=== PATIENT | male | born 1965 | race Caucasian/White ===

== ENCOUNTER → 2017-09-10 09:30 | Outpatient (CLI) | payer BC, SELFPAY | PROVIDERS: PCP Emergency Medicine; Visit Provider Emergency Medicine | DX: R00.8 Other abnormalities of heart beat (principal); I49.9 Cardiac arrhythmia, unspecified | CPT/HCPCS: 93225; 93226 ==

== ENCOUNTER → 2017-11-09 12:26 | Outpatient (POV) | payer BC, SELFPAY ==
[2017-11-09 14:47] LABS: INR 1.24 (0.9-1.1); Prothrombin Time 12.7 seconds (9.4-11.8)
[2017-11-11 08:37] LABS: Iron 75 ug/dL (38-169); UIBC 287 ug/dL (111-343)
[2017-11-11 11:19] LABS: Alpha-1-Antitrypsin 163 mg/dL (90-200); Ceruloplasmin 26.6 mg/dL (16.0-31.0); Immunoglobulin A, Qn 314 mg/dL (90-386); Immunoglobulin G, Qn 1950 mg/dL (700-1600)
[2017-11-12 06:47] LABS: AFP, Tumor Marker 479.3 ng/mL (0.0-8.3); Angiotensin Converting Enzyme 59 U/L (14-82); Immunoglobulin M, Qn 85 mg/dL (20-172); Iron Saturation 21 % (15-55)
[2017-11-12 06:48] LABS: Actin (Smooth Muscle) Antibody 70 Units (0-19); Antinuclear Antibodies, IFA Negative (.); Liver-Kidney Microsomal Ab 1.1 Units (0.0-20.0); Mitochondrial (M2) Antibody <20.0 Units (0.0-20.0)
[2017-11-13 06:16] LABS: ALT (SGPT) P5P 170 IU/L (0-55); Alpha 2-Macroglobulins, Qn 274 mg/dL (110-276); Apolipoprotein A-1 112 mg/dL (101-178); Bilirubin, Total 0.9 mg/dL (0.0-1.2); Fibrosis Score 0.89 (0.00-0.21); GGT 191 IU/L (0-65); Haptoglobin 28 mg/dL (34-200); Necroinflammat Activity Grade A3-Severe activity (.); Necroinflammat Activity Score 0.89 (0.00-0.17)
[2017-12-23 16:18] LABS: Hepatitis C Genotype Charge YES
== END ==
PROVIDERS: Visit Provider Nurse Practitioner Acute Care
DX: B18.2 Chronic viral hepatitis C (principal); R94.5 Abnormal results of liver function studies; R07.9 Chest pain, unspecified; Z86.010 Personal history of colon polyps
CPT/HCPCS: 36415; 82103; 82104; 82105; 82164; 82390; 82784; 83540; 83550; 85610; 86038; 86255; 86256; 86376; 87522; 87900

== ENCOUNTER → 2017-11-12 10:19 | Outpatient (CLI) | payer BC, SELFPAY ==
--- NOTE | 2017-11-12 10:24 | US_ITS ---
US abdomen limited History:Hepatitis C Ordering Physician:Kathleen Toribio Patient Age: 52 years Comparison:None Findings: Pancreas:The pancreas is poorly demonstrated. Liver:The liver margin is slightly irregular with slight increased echogenicity of the liver. No intrahepatic biliary dilatation. There is a 2 cm area of increased echogenicity in the left hepatic lobe possibly due to a hemangioma. This is only demonstrated on one image. CT suggested for further evaluation. There is appropriate direction of blood flow within the portal vein. The portal vein is upper normal at 13 mm. Right Kidney:No hydronephrosis. There is an 18 mm cyst along the lower pole the right kidney and a 2.5 cm cyst in the mid pole. 17 mm cyst upper pole Gallbladder:Prior cholecystectomy, no ductal dilatation Impression: 1. Somewhat irregular hyperechoic liver, possible cirrhosis. Portal vein blood flow is hepatopedal. Portal vein upper limits of normal. 2. 2 cm area of increased echogenicity in the left hepatic lobe which could be due to a hemangioma. CT or MRI may with hemangioma protocol may confirm. 3. Right renal cysts
== END ==
PROVIDERS: PCP Emergency Medicine; Visit Provider Nurse Practitioner Acute Care
DX: B19.20 Unspecified viral hepatitis C without hepatic coma (principal); K63.5 Polyp of colon; R74.8 Abnormal levels of other serum enzymes; R07.9 Chest pain, unspecified
CPT/HCPCS: 76705

== ENCOUNTER → 2017-12-01 07:46 | Outpatient (CLI) | payer BC, SELFPAY ==
[2017-12-01 08:11] LABS: Blood Urea Nitrogen 7 mg/dL (7-18); Estimated Glomerular Filt Rate 78 ml/min (>60); GFR (African American) 94 ML/MIN (>60)
--- NOTE | 2017-12-01 08:47 | CT_ITS ---
CT abdomen pelvis w con CLINICAL INDICATION: Follow-up liver mass, cirrhosis, abnormal liver ultrasound, hepatitis ITS.REASON: CIRRHOSIS, LIVER MASS, CHRONIC HEP C ORDERING PHYSICIAN: Kathleen Toribio PATIENT AGE: 52 years COMPARISON: 11/12/2017 TECHNIQUE: Axial images obtained with sagittal and coronal reformats. All CT scans at the facility use one or more dose reduction, viz: automated exposure control, ma/kV adjustment per patient size (including targeted exams where dose is matched to indication, i.e. head), or iterative reconstruction technique. 30 seconds, 60 seconds, 5 minute delay, and 10 minute delayed images are obtained following the intravenous ministration of 75 mL's of Isovue-370 PROCEDURE: Oral Contrast: None IV Contrast: 75 mL's of Isovue-370. FINDINGS: There is an 8 mm nodular opacity in the right lung base along the hemidiaphragm. The liver margin is somewhat irregular consistent with cirrhosis. There is a cyst in the inferior aspect of the right hepatic lobe at 9 mm. On the arterial phase images there is a subtle area of decreased attenuation in the lateral aspect of the left hepatic lobe at 12 mm. This is not apparent on the other images and may be due to artifact from partial volume averaging. There is an ill-defined area of enhancement in the anterior segment of the right hepatic lobe measuring 3.2 x 2 cm. This shows some decreased attenuation on the 1 minute and 5 minute and 10 minute delayed images. This is nonspecific however, hepatocellular carcinoma is a consideration. No other abnormal areas of enhancement are apparent. There has been a prior cholecystectomy. There is splenomegaly at 18 cm. Liver margin is somewhat irregular. The portal vein is prominent at 1.9 cm. There is an isodense in the right hepatic lobe inferiorly at 9 mm and may be due to small cyst The adrenal glands and pancreas have an unremarkable appearance. There are mildly prominent lymph nodes in the portal region measuring up to 2.7 x 1.5 cm. Mildly prominent lymph nodes are present at the celiac axis region. Bilateral renal cysts. No intestinal obstruction or free air. No evidence of appendicitis or diverticulitis. No pelvic mass or abnormal fluid collection or focal inflammatory change in the pelvis. No acute bony anomalies. IMPRESSION: 1. Findings suggesting cirrhosis and portal hypertension with splenomegaly 2. Ill-defined area of initial contrast enhancement with immediate washout involving the anterior segment of the right hepatic lobe, segment 8. Hepatocellular carcinoma could have this finding. Consider confirmation with MRI. 2. Adenopathy in the portal region and along the celiac axis.
[2017-12-03 06:41] LABS: HCV Genotype Charge YES
[2017-12-04 13:20] LABS: Hepatitis C Genotype 2b (.)
== END ==
PROVIDERS: PCP Emergency Medicine; Visit Provider Nurse Practitioner Acute Care
DX: K74.60 Unspecified cirrhosis of liver (principal); R16.0 Hepatomegaly, not elsewhere classified; B18.2 Chronic viral hepatitis C
CPT/HCPCS: 36415; 74177; 82565; 84520; 87522; 87902; Q9967

== ENCOUNTER → 2017-12-21 09:26 | Outpatient (POV) | payer BC, SELFPAY | PROVIDERS: PCP Emergency Medicine; Visit Provider Nurse Practitioner Acute Care | DX: Z00.00 Encounter for general adult medical examination without abnormal findings (principal) ==

== ENCOUNTER → 2018-01-21 13:16 | Outpatient (CLI) | payer BC, SELFPAY ==
--- NOTE | 2018-01-21 13:19 | CT_ITS ---
CT chest wo con HISTORY: Hepatocellular carcinoma, evaluate for metastasis ITS.REASON: HCC, ASSESS FOR METASTATIC DISEASE ORDERING PHYSICIAN: Ascencion Powell PATIENT AGE: 52 years COMPARISON: None Technique: Axial images obtained with sagittal and coronal reformats. All CT scans at the facility use one or more dose reduction, viz: automated exposure control, ma/kV adjustment per patient size (including targeted exams where dose is matched to indication, i.e. head), or iterative reconstruction technique. FINDINGS: No mediastinal or hilar mass or adenopathy is evident. Coronary artery calcifications are present. Normal heart size without evidence of cardial effusion. There is a 7 mm subpleural nodular opacity in the extreme right lung base along the right hemidiaphragm. Addition there is a 4 mm noncalcified nodule in the superior segment of the left lower lobe. No central obstructing lesions. No effusions or infiltrates. There are mild atelectatic or fibrotic changes in the lung bases. Incidental note is made of cirrhotic appearance of the liver with splenomegaly, periportal adenopathy, and ill-defined hypodense lesion of the right hepatic lobe measuring approximately 4 x 3 cm. Cannot determine if this has increased are decreased in size as there are no previous unenhanced exams available for review. This does represent the area of enhancement is noted on the recent enhanced CT scan of 12/01/2017 and may have slightly increased in size. Degenerative changes thoracic spine. No evidence of lytic or blastic lesion. IMPRESSION: 1. There are 2 pulmonary nodules one of which is pleural-based in the right lung base along the hemidiaphragm and 7 mm and one in the superior segment of left lower lobe 4 mm. These are nonspecific. Overall, the appearance is not typical for metastatic disease although that entity cannot completely be excluded. Follow-up is suggested to confirm stability of these nodules 2. Mild cardiomegaly with coronary artery calcification 3. Cirrhosis with portal hypertension, ill-defined right hepatic mass and portal adenopathy which may correspond to patient's history of hepatocellular carcinoma
== END ==
PROVIDERS: PCP Emergency Medicine; Visit Provider Transplant Surgery
DX: C22.0 Liver cell carcinoma (principal); Z12.89 Encounter for screening for malignant neoplasm of other sites
CPT/HCPCS: 71250

== ENCOUNTER 2018-05-15 14:23 | Inpatient (IN) ==
--- NOTE | 2018-05-15 14:38 | Emergency Department Note ---
ED Disposition Clinical Impression: Upper gastrointestinal bleed, Aspirin adverse reaction Disposition: Still a Patient Condition on Discharge: Fair Instructions: DI for Gastrointestinal Bleeding Referrals: Real Linda MD [Primary Care Provider] - - Critical Care Critical Care Time: No Attestation: On 05/15/18, the high probability of a clinically significant, sudden or life threatening deterioration of the following system(s) required my full and direct attention, intervention and personal management. The time I documented below is in addition to time spent performing reported procedures but includes the following listed in this critical care notation. Medical Decision Making - Medical Records Medical records reviewed: Yes: I reviewed the patient's medical records. - Thomas Inquiry Pt receiving controlled substance: No Thomas was queried for this patient: No Vital Signs: 05/15/18 14:17 05/15/18 14:47 05/15/18 15:13 Temperature 97.9 F Temperature Source Oral Pulse Rate [Right Brachial] 112 H 107 H 109 H Respiratory Rate 18 16 18 Blood Pressure [Right Arm] 161/109 H 110/59 L 113/57 L Blood Pressure Mean [Right Arm] 126 76 75 Blood Pressure Source [Right Arm] Automatic Cuff Automatic Cuff Automatic Cuff Blood Pressure Position [Right Arm] Sitting Sitting Sitting 02 Sat by Pulse Oximetry 98 98 96 Oxygen Delivery Method Room Air Room Air Room Air - Lab Data Lab Results 05/15/18 14:30: Stool Occult Blood Positive A 05/15/18 14:30: WBC 17.5 H D, RBC 3.48 L, Hgb 11.3 L, Hct 33.8 L, MCV 96.9 H, MCH 32.4 H, MCHC 33.5, RDW 15.1, Plt Count 174 D, MPV 8.7, Neut % (Auto) 84.3 H , Lymph % (Auto) 12.0, [place] % (Auto) 3.2, Eos % (Auto) 0.2, Baso % (Auto) 0.4, Neut # (Auto) 14.8 H, Lymph # (Auto) 2.1, [place] # (Auto) 0.6, Eos # (Auto) 0.0, Baso # (Auto) 0.1, Total Counted 100, Neutrophils % (Manual) 88 H, Lymphocytes % (Manual) 8 L, Monocytes % (Manual) 4, Platelet Estimate Normal, RBC Morphology Normal 05/15/18 14:30: PT 12.5 H, INR 1.22 H, APTT 21.2 L 05/15/18 14:30: Sodium 137, Potassium 4.9, Chloride 104, Carbon Dioxide 24, Anion Gap 13.9, BUN 41 H D, Creatinine 1.00, Estimated Creat Clear 100, Estimated GFR 78, Est GFR ( Amer) 94, Glucose 206 H, Calcium 9.1, Total Bilirubin 2.4 H, AST 188 H, ALT 154 H, Alkaline Phosphatase 123 H, Total Protein 7.4, Albumin 2.8 L, Globulin 4.6 H, Albumin/Globulin Ratio 0.6 L Result diagrams: 05/15/18 14:30 05/15/18 14:30 Orders (Tests/Meds): ED MEDICATIONS Generic Name Dose Route Start Last Admin Trade Name Freq PRN Reason Stop Dose Admin Pantoprazole Sodium 80 mg/ 100 mls @ 100 mls/hr 05/15/18 14:29 Sodium Chloride IV 05/15/18 15:28 ONCE ONE Discontinued Medications Generic Name Dose Route Start Last Admin Trade Name Freq PRN Reason Stop Dose Admin Famotidine 20 mg 05/15/18 14:29 Pepcid 20mg/2ml Vial IV 05/15/18 14:30 ONCE ONE Pantoprazole Sodium 80 mg/ 100 mls @ 10 mls/hr 05/15/18 14:30 05/15/18 14:51 Sodium Chloride IV 05/18/18 14:29 Not Given .Q10H CASI Pantoprazole Sodium 80 mg/ 100 mls @ 10 mls/hr 05/15/18 15:30 Sodium Chloride IV 05/18/18 15:29 .Q10H CASI ORDERS Category Date Time Status Acute abdomen XR series [XR acute abdomen series] Stat Exams 05/15/18 14:29 Taken Occult Blood,Stool Stat Lab 05/15/18 14:30 Ordered - Radiology Data #1 Image(s): Chest, Abdomen Image Reviewed: Yes I reviewed the patient's radiology image Preliminary Findings: Normal/NAD Stop changes no acute findings. Medical Decision Narrative: Patient was positive for Hemoccult his hemoglobin was above 10 hemodynamically stable I called Dr. Chairez who was apron operator for Dr. Linda agreed to admit the patient for IV fluids IV Protonix and surgical consultation. [id number] Hogan surgeon apron operator and notified him of the admission and need for inpatient consultation. GI Bleed HPI - General Chief complaint: GI Bleed Stated complaint: spitting up blood Time Seen by Provider: 05/15/18 14:25 Mode of Arrival: EMS Limitations: No Limitations Description of Symptoms (Recalled from ER Triage Doc. by RN): re-evaluation for same scenario as yesterday. spit up blood. - History of Present Illness HPI Narrative: 52 years old white male on daily aspirin he has been experiencing hematemesis for the past 2 days once a day. Also he developed black tarry stool for the past 2 days. Patient denies being weak dizzy or lightheaded. Patient denies having chest pain or abdominal pain. Patient denies having dysuria hematuria or frequency hemoptysis shortness of air or weakness. MD complaint: blood streaked emesis, melena Onset (ago): day(s) (Once a day for 2 days..) Consistency: intermittent Severity: mild Relieving factors: none Exacerbating factors: none Associated symptoms: denies other symptoms Treatments Prior to Arrival: none - Related Data Home Medications Medication Instructions Recorded Confirmed doxepin 150 mg capsule 150 mg PO QHS 11/24/17 05/14/18 hydroxyzine HCl 50 mg tablet 50 mg PO QHS tab 11/24/17 05/14/18 ibuprofen 400 mg tablet 400 mg PO QID PRN 11/24/17 05/14/18 trazodone 50 mg tablet 50 mg PO DAILY 11/24/17 05/14/18 Amlodipine Besylate 2.5 mg PO DAILY 05/14/18 05/14/18 Aspirin [Aspirin 81mg chewable 81 mg PO DAILY 05/14/18 05/14/18 tab] Bisoprolol Fumarate [Bisoprolol 5 mg PO DAILY 05/14/18 05/14/18 5mg Tablet] Allergies Allergy/AdvReac Type Severity Reaction Status Date / Time acetaminophen [From Percocet] Allergy Mild Verified 11/24/17 14:10 haloperidol [From Haldol] Allergy Mild Verified 11/24/17 14:10 oxycodone [From Percocet] Allergy Mild Verified 11/24/17 14:10 risperidone [From Risperdal] Allergy Mild Verified 11/24/17 14:11 [facility] [place] History - Hepatitis A Screen Drug use history?: No High risk sexual behaviors?: No History of sexually transmitted infection?: No Currently employed?: No Childcare worker?: Yes Do you have indoor plumbing?: Yes Do you have electricity?: Yes Attestation statement:: This patient has been screened for Hepatitis A risk factors. I have reviewed the patient's past medical history: Yes Medical History: Reports:: Chronic Obstructive Pulmonary Disease (COPD), Dep ression Denies:: Diabetes Mellitus Type 1, Diabetes Mellitus Type 2 Other Medical History: Reports: Liver Disease Other Surgeries: Yes: Cholecystectomy - Social History Smoking Status: Former smoker Alcohol Intake: never Substance Use Type: denies use Occupational Status: disabled - Psychiatric History Pschychiatric History:: Reports:: Depression Family Hx:: No significant family history ROS Obtained: Yes All systems reviewed & no additional complaints Physical Exam - General General appearance: alert, in no apparent distress - Head Head exam: atraumatic, normocephalic, normal inspection - Eye Eye exam: Present: normal appearance, PERRL, EOMI. Absent: scleral icterus, nystagmus - ENT ENT exam: Present: normal exam, normal oropharynx, mucous membranes moist, TM's normal bilaterally, normal external ear exam - Neck Neck exam: Present: normal inspection, full ROM, trachea midline. Absent: tenderness, meningismus, lymphadenopathy - Chest Chest inspection: Present: normal inspection, symmetric chest wall rise. Absent: tenderness - Respiratory Respiratory exam: Present: normal lung sounds bilaterally. Absent: respiratory distress, wheezes - Cardiovascular Cardiovascular exam: Present: regular rate, normal rhythm, normal heart sounds. Absent: JVD - Abdominal Exam Abdominal exam: Present: soft, normal bowel sounds. Absent: distention, tenderness, guarding, rebound, rigidity - Rectal Exam Rectal exam: Present: normal rectal tone, black stool, normal prostate. Absent: tenderness - exam: Present: normal inspection, normal testicular lie. Absent: testicular tenderness, urethral discharge, scrotal swelling - Extremities Exam Extremities exam: Present: normal inspection, full ROM, normal capillary refill. Absent: calf tenderness - Back Exam Back exam: Present: normal inspection. Absent: tenderness, CVA tenderness (R), CVA tenderness (L), vertebral tenderness - Neurological Exam Neurological exam: Present: alert, oriented X3, CN II-XII intact, motor sensory deficit - Psychiatric Psychiatric exam: Present: normal affect, normal mood - Skin Skin exam: Present: warm, dry, intact, normal color - Lymphatic Lymphatic Findings: no adenopathy
[2018-05-15 14:51] LABS: Basophils # 0.1 K/mm3 (0-0.2); Basophils % 0.4 % (0.1-2.0); Eosinophils % 0.2 % (0.1-12.0); Hematocrit 33.8 % (42.0-52.0); Hemoglobin 11.3 g/dL (14.1-18.0); Lymphocytes # 2.1 K/mm3 (0.7-4.5); Mean Corpuscular HGB Conc 33.5 g/dL (31.8-35.4); Mean Corpuscular Hemoglobin 32.4 pg (27.0-31.2); Mean Corpuscular Volume 96.9 fl (80-94); Mean Platelet Volume 8.7 fl (7.4-10.4); Monocytes # 0.6 K/mm3 (0.1-1.0); Monocytes % 3.2 % (1.7-9.3); Neutrophils # 14.8 K/mm3 (1.8-7.8); Neutrophils % 84.3 % (37.0-80.0); Platelet Count 174 K/mm3 (142-424); Red Blood Count 3.48 M/mm3 (4.60-6.20); Red Cell Distribution Width 15.1 % (11.5-17.5); White Blood Count 17.5 K/mm3 (4.8-10.8)
[2018-05-15 14:59] LABS: Activated Partial Thrombo Time 21.2 seconds (23.6-34.0); INR 1.22 (0.9-1.1); Prothrombin Time 12.5 seconds (9.4-11.8)
[2018-05-15 15:02] LABS: Albumin Level 2.8 gm/dL (3.4-5.0); Albumin/Globulin Ratio 0.6 (1.1-1.8); Anion Gap 13.9 mEq/L (5-15); Bilirubin,Total 2.4 mg/dL (0.2-1.0); Calcium 9.1 mg/dL (8.5-10.1); Globulin 4.6 gm/dl (1.3-3.2); Potassium 4.9 mmoL/L (3.5-5.1); Total Protein,Serum 7.4 gm/dL (6.4-8.2)
[2018-05-15 15:13] LABS: Lymphocytes % 8 % (10-50); Monocytes % 4 % (2-9); Neutrophils % 88 % (42-76); RBC Morphology Normal; Total Cells Counted 100
[2018-05-15 16:40] LABS: Hemoglobin 10.8 g/dL (14.1-18.0)
[2018-05-15 23:55] LABS: Hematocrit 25.7 % (42.0-52.0)
[2018-05-16 06:30] LABS: Basophils # 0.1 K/mm3 (0-0.2); Basophils % 0.7 % (0.1-2.0); Eosinophils # 0.1 K/mm3 (0.0-0.4); Eosinophils % 1.1 % (0.1-12.0); Hemoglobin 8.4 g/dL (14.1-18.0); Lymphocytes # 2.4 K/mm3 (0.7-4.5); Lymphocytes % 20.7 % (10-50); Mean Corpuscular HGB Conc 35.5 g/dL (31.8-35.4); Mean Corpuscular Hemoglobin 33.5 pg (27.0-31.2); Mean Corpuscular Volume 94.3 fl (80-94); Mean Platelet Volume 8.6 fl (7.4-10.4); Monocytes # 0.5 K/mm3 (0.1-1.0); Monocytes % 4.8 % (1.7-9.3); Neutrophils # 8.3 K/mm3 (1.8-7.8); Neutrophils % 72.7 % (37.0-80.0); Platelet Count 116 K/mm3 (142-424); Red Blood Count 2.51 M/mm3 (4.60-6.20); Red Cell Distribution Width 15.4 % (11.5-17.5); White Blood Count 11.3 K/mm3 (4.8-10.8)
[2018-05-16 06:32] LABS: Hematocrit 23.7 % (42.0-52.0)
[2018-05-16 06:39] LABS: Anion Gap 11.7 mEq/L (5-15); Calcium 8.2 mg/dL (8.5-10.1); Potassium 3.7 mmoL/L (3.5-5.1)
--- NOTE | 2018-05-16 10:43 | Pharmacy Consult Notes ---
[facility] Pharmacy VTE Monitoring - Patient Demographics Admission date: 05/15/18 Report Date: 05/16/18 Time: 10:43 Allergies/Adverse Reactions: Patient Allergies acetaminophen [From Percocet] Allergy (Mild, Verified 05/15/18 17:06) haloperidol [From Haldol] Allergy (Mild, Verified 05/15/18 17:06) oxycodone [From Percocet] Allergy (Mild, Verified 05/15/18 17:06) risperidone [From Risperdal] Allergy (Mild, Verified 05/15/18 17:06) Height: 1.85 m Weight: 108.862 kg Patient Problems: Current Active Problems Upper gastrointestinal bleed (Acute) Aspirin adverse reaction (Acute) - VTE Risk Labs: VTE Related Lab Results Hgb 8.4 g/dL (14.1-18.0) L 05/16/18 06:20 Hct 23.7 % (42.0-52.0) L* 05/16/18 06:20 Plt Count 116 K/mm3 (142-424) L D 05/16/18 06:20 PT 12.5 seconds (9.4-11.8) H 05/15/18 14:30 INR 1.22 (0.9-1.1) H 05/15/18 14:30 APTT 21.2 seconds (23.6-34.0) L 05/15/18 14:30 BUN 34 mg/dL (7-18) H 05/16/18 06:20 Creatinine 0.92 mg/dL (0.70-1.30) 05/16/18 06:20 Estimated Creat Clear 141 mL/min (50-200) 05/16/18 06:20 - Prophylaxis VTE Prophylaxis Ordered?: Yes Types of VTE Prophylaxis: TEDS Knee High Location of Applied Device: Bilateral Lower Extremeties
--- NOTE | 2018-05-16 13:07 | Consult Report ---
*Admission Date: 05/15/18 *Chief complaint: Upper GI Bleed *History of present illness: Mr. Galdamez is a 52-year-old male with a prominently fever history of self- reported melena and low volume hematemesis. Additional complaints of fatigue and malaise. No abdominal pain. No unintentional weight loss. No fever or chills. Patient currently resides at a long-term care facility. Known history of hepatitis C. Patient reports that he has been told he has cirrhosis secondary to hepatitis C. no other significant complaints. Admitted from [facility] ED for further management observation. Patient reports colonoscopy greater than 10 years ago. Patient reports no prior EGD. Review of Systems - Review of Systems Review of systems:: pertinent systems reviewed and negative unless documented below - Constitutional Reports fatigue, Reports lack of energy, Reports malaise, Reports weakness - *Respiratory Reports shortness of breath with activity - *Gastrointestinal Reports coffee ground vomit, Reports loose stools, Reports black, tarry stools, Reports nausea [facility] History Medical History: Reports:: Chronic Obstructive Pulmonary Disease (COPD), Depression, Hypertension Denies:: Diabetes Mellitus Type 1, Diabetes Mellitus Type 2 Have you ever received a pneumonia vaccine?: No Have you received a flu vaccine this season?: No Other Medical History: Reports: Liver Disease Other Surgeries: Yes: Cholecystectomy - *Social History Smoking Status: Former smoker Alcohol Intake: never Substance Use Type: denies use Occupational Status: disabled Travel in the last 8 weeks: None - Psychiatric History Expresses thoughts of harming self/others: None Suicide Plan Description: No Plan Pschychiatric History:: Reports:: Depression Family Hx:: No significant family history Meds Home Medications Medication Instructions Recorded Confirmed Type doxepin 150 mg capsule 150 mg PO HS 11/24/17 05/16/18 History Amlodipine Besylate 2.5 mg PO DAILY 05/14/18 05/15/18 History Aspirin [Aspirin 81mg chewable 81 mg PO DAILY 05/14/18 05/15/18 History tab] Bisoprolol Fumarate [Bisoprolol 5 mg PO DAILY 05/14/18 05/15/18 History 5mg Tablet] Ibuprofen [Ibuprofen 400mg 400 mg PO TIDP PRN 05/16/18 05/16/18 History Tablet] Trazodone HCl 50 mg PO HS 05/16/18 05/16/18 History hydrOXYzine HCl [Hydroxyzine HCl] 50 mg PO HS 05/16/18 05/16/18 History Allergies Allergy/AdvReac Type Severity Reaction Status Date / Time acetaminophen [From Percocet] Allergy Mild Verified 05/15/18 17:06 haloperidol [From Haldol] Allergy Mild Verified 05/15/18 17:06 oxycodone [From Percocet] Allergy Mild Verified 05/15/18 17:06 risperidone [From Risperdal] Allergy Mild Verified 05/15/18 17:06 Exam Vital signs and Labs for Last 24 Hours: Temp Pulse Resp BP Pulse Ox 98.8 F 107 H 15 103/64 L 96 05/16/18 08:00 05/16/18 08:00 05/16/18 08:00 05/16/18 08:00 05/16/18 08:00 Laboratory Results - last 24 hr 05/15/18 14:30: Stool Occult Blood Positive A 05/15/18 14:30: WBC 17.5 H D, RBC 3.48 L, Hgb 11.3 L, Hct 33.8 L, MCV 96.9 H, MCH 32.4 H, MCHC 33.5, RDW 15.1, Plt Count 174 D, MPV 8.7, Neut % (Auto) 84.3 H , Lymph % (Auto) 12.0, [place] % (Auto) 3.2, Eos % (Auto) 0.2, Baso % (Auto) 0.4, Neut # (Auto) 14.8 H, Lymph # (Auto) 2.1, [place] # (Auto) 0.6, Eos # (Auto) 0.0, B aso # (Auto) 0.1, Total Counted 100, Neutrophils % (Manual) 88 H, Lymphocytes % (Manual) 8 L, Monocytes % (Manual) 4, Platelet Estimate Normal, RBC Morphology Normal 05/15/18 14:30: PT 12.5 H, INR 1.22 H, APTT 21.2 L 05/15/18 14:30: Sodium 137, Potassium 4.9, Chloride 104, Carbon Dioxide 24, Anion Gap 13.9, BUN 41 H D, Creatinine 1.00, Estimated Creat Clear 100, Estimated GFR 78, Est GFR ( Amer) 94, Glucose 206 H, Calcium 9.1, Total Bilirubin 2.4 H, AST 188 H, ALT 154 H, Alkaline Phosphatase 123 H, Total Protein 7.4, Albumin 2.8 L, Globulin 4.6 H, Albumin/Globulin Ratio 0.6 L 05/15/18 16:00: Blood Type A Positive, Antibody Screen Negative, Crossmatch (AHG) See Detail 05/15/18 16:00: Hgb 10.8 L, Hct 32.0 L 05/15/18 23:40: Hgb 9.0 L D, Hct 25.7 L 05/16/18 06:20: WBC 11.3 H D, RBC 2.51 L D, Hgb 8.4 L, Hct 23.7 L*, MCV 94.3 H, MCH 33.5 H, MCHC 35.5 H, RDW 15.4, Plt Count 116 L D, MPV 8.6, Neut % (Auto) 72.7, Lymph % (Auto) 20.7, [place] % (Auto) 4.8, Eos % (Auto) 1.1, Baso % (Auto) 0.7, Neut # (Auto) 8.3 H, Lymph # (Auto) 2.4, [place] # (Auto) 0.5, Eos # (Auto) 0.1, Baso # (Auto) 0.1 05/16/18 06:20: Sodium 139, Potassium 3.7 D, Chloride 107, Carbon Dioxide 24, Anion Gap 11.7, BUN 34 H, Creatinine 0.92, Estimated Creat Clear 141, Estimated GFR 86, Est GFR ( Amer) 104, Glucose 159 H D, Calcium 8.2 L 05/16/18 07:13: Blood Type Confirm A Positive I & O for Last 24 hours: Intake & Output 05/14/18 05/15/18 05/16/18 05/17/18 11:59 11:59 11:59 11:59 Intake Total 360 / 360 Balance 360 / 360 Weight 108.862 kg - Constitutional no acute distress - *Routine HEENT Exam Eye: Present: scleral injection Comments: Scleral icterus. - *Routine Respiratory Exam Present: CTA bilaterally - *Routine Cardiovascular Exam Present: RRR - *Routine Abdominal Exam Present: soft Comments: Nontender. Nondistended. No evidence of abdominal wall varices. No umbilical hernia. Results - Labs 05/16/18 06:20 05/16/18 06:20 Laboratory Results - last 24 hr 05/15/18 14:30: Stool Occult Blood Positive A 05/15/18 14:30: WBC 17.5 H D, RBC 3.48 L, Hgb 11.3 L, Hct 33.8 L, MCV 96.9 H, MCH 32.4 H, MCHC 33.5, RDW 15.1, Plt Count 174 D, MPV 8.7, Neut % (Auto) 84.3 H , Lymph % (Auto) 12.0, [place] % (Auto) 3.2, Eos % (Auto) 0.2, Baso % (Auto) 0.4, Neut # (Auto) 14.8 H, Lymph # (Auto) 2.1, [place] # (Auto) 0.6, Eos # (Auto) 0.0, Baso # (Auto) 0.1, Total Counted 100, Neutrophils % (Manual) 88 H, Lymphocytes % (Manual) 8 L, Monocytes % (Manual) 4, Platelet Estimate Normal, RBC Morphology Normal 05/15/18 14:30: PT 12.5 H, INR 1.22 H, APTT 21.2 L 05/15/18 14:30: Sodium 137, Potassium 4.9, Chloride 104, Carbon Dioxide 24, Anion Gap 13.9, BUN 41 H D, Creatinine 1.00, Estimated Creat Clear 100, Estimated GFR 78, Est GFR ( Amer) 94, Glucose 206 H, Calcium 9.1, Total Bilirubin 2.4 H, AST 188 H, ALT 154 H, Alkaline Phosphatase 123 H, Total Protein 7.4, Albumin 2.8 L, Globulin 4.6 H, Albumin/Globulin Ratio 0.6 L 05/15/18 16:00: Blood Type A Positive, Antibody Screen Negative, Crossmatch (AHG) See Detail 05/15/18 16:00: Hgb 10.8 L, Hct 32.0 L 05/15/18 23:40: Hgb 9.0 L D, Hct 25.7 L 05/16/18 06:20: WBC 11.3 H D, RBC 2.51 L D, Hgb 8.4 L, Hct 23.7 L*, MCV 94.3 H, MCH 33.5 H, MCHC 35.5 H, RDW 15.4, Plt Count 116 L D, MPV 8.6, Neut % (Auto) 72.7, Lymph % (Auto) 20.7, [place] % (Auto) 4.8, Eos % (Auto) 1.1, Baso % (Auto) 0.7, Neut # (Auto) 8.3 H, Lymph # (Auto) 2.4, [place] # (Auto) 0.5, Eos # (Auto) 0.1, Baso # (Auto) 0.1 05/16/18 06:20: Sodium 139, Potassium 3.7 D, Chloride 107, Carbon Dioxide 24, Anion Gap 11.7, BUN 34 H, Creatinine 0.92, Estimated Creat Clear 141, Estimated GFR 86, Est GFR ( Amer) 104, Glucose 159 H D, Calcium 8.2 L 05/16/18 07:13: Blood Type Confirm A Positive - Imaging Chest x-ray: report reviewed Assessment and Plan (1) Upper gastrointestinal bleed Current visit: Yes Status: Acute Category: Medical Code(s): K92.2 - Gastrointestinal hemorrhage, unspecified (2) Hematemesis Current visit: No Status: Acute Qualifiers: Nausea presence: with nausea Qualified Code(s): K92.0 - Hematemesis Category: Medical Code(s): K92.0 - Hematemesis Presents with suspected upper GI bleed. Hematemesis and melena reported. Most likely secondary to underlying hepatitis C and cirrhosis. Hemodynamically stable. Hemoglobin and hematocrit noted. No prior EGD per patient report. Allow clear liquids today. Continue IV fluids. Recheck H&H. NPO after midnight. Anticipate EGD during inpatient admission.
--- NOTE | 2018-05-16 13:17 | History & Physical Report ---
*Admission Date: 05/15/18 *Chief complaint: vomiting blood *History of present illness: this wm from [facility] has known liver disease and was seen in the ed a few days ago and then continued with [facility] History Medical History: Reports:: Chronic Obstructive Pulmonary Disease (COPD), Depression, Hypertension Denies:: Diabetes Mellitus Type 1, Diabetes Mellitus Type 2 Have you ever received a pneumonia vaccine?: No Have you received a flu vaccine this season?: No Other Medical History: Reports: Liver Disease Other Surgeries: Yes: Cholecystectomy - *Social History Smoking Status: Former smoker Alcohol Intake: never Substance Use Type: denies use Occupational Status: disabled Travel in the last 8 weeks: None - Psychiatric History Expresses thoughts of harming self/others: None Suicide Plan Description: No Plan Pschychiatric History:: Reports:: Depression Family Hx:: No significant family history Review of Systems - *Neurologic Reports weakness Meds Home Medications Medication Instructions Recorded Confirmed Type doxepin 150 mg capsule 150 mg PO HS 11/24/17 05/16/18 History Amlodipine Besylate 2.5 mg PO DAILY 05/14/18 05/15/18 History Aspirin [Aspirin 81mg chewable 81 mg PO DAILY 05/14/18 05/15/18 History tab] Bisoprolol Fumarate [Bisoprolol 5 mg PO DAILY 05/14/18 05/15/18 History 5mg Tablet] Ibuprofen [Ibuprofen 400mg 400 mg PO TIDP PRN 05/16/18 05/16/18 History Tablet] Trazodone HCl 50 mg PO HS 05/16/18 05/16/18 History hydrOXYzine HCl [Hydroxyzine HCl] 50 mg PO HS 05/16/18 05/16/18 History Allergies Allergy/AdvReac Type Severity Reaction Status Date / Time acetaminophen [From Percocet] Allergy Mild Verified 05/15/18 17:06 haloperidol [From Haldol] Allergy Mild Verified 05/15/18 17:06 oxycodone [From Percocet] Allergy Mild Verified 05/15/18 17:06 risperidone [From Risperdal] Allergy Mild Verified 05/15/18 17:06 Exam Vital signs and Labs for Last 24 Hours: Temp Pulse Resp BP Pulse Ox 98.8 F 107 H 15 103/64 L 96 05/16/18 08:00 05/16/18 08:00 05/16/18 08:00 05/16/18 08:00 05/16/18 08:00 Laboratory Results - last 24 hr 05/15/18 14:30: Stool Occult Blood Positive A 05/15/18 14:30: WBC 17.5 H D, RBC 3.48 L, Hgb 11.3 L, Hct 33.8 L, MCV 96.9 H, MCH 32.4 H, MCHC 33.5, RDW 15.1, Plt Count 174 D, MPV 8.7, Neut % (Auto) 84.3 H , Lymph % (Auto) 12.0, [place] % (Auto) 3.2, Eos % (Auto) 0.2, Baso % (Auto) 0.4, Neut # (Auto) 14.8 H, Lymph # (Auto) 2.1, [place] # (Auto) 0.6, Eos # (Auto) 0.0, Baso # (Auto) 0.1, Total Counted 100, Neutrophils % (Manual) 88 H, Lymphocytes % (Manual) 8 L, Monocytes % (Manual) 4, Platelet Estimate Normal, RBC Morphology Normal 05/15/18 14:30: PT 12.5 H, INR 1.22 H, APTT 21.2 L 05/15/18 14:30: Sodium 137, Potassium 4.9, Chloride 104, Carbon Dioxide 24, An ion Gap 13.9, BUN 41 H D, Creatinine 1.00, Estimated Creat Clear 100, Estimated GFR 78, Est GFR ( Amer) 94, Glucose 206 H, Calcium 9.1, Total Bilirubin 2.4 H, AST 188 H, ALT 154 H, Alkaline Phosphatase 123 H, Total Protein 7.4, Al bumin 2.8 L, Globulin 4.6 H, Albumin/Globulin Ratio 0.6 L 05/15/18 16:00: Blood Type A Positive, Antibody Screen Negative, Crossmatch (AHG ) See Detail 05/15/18 16:00: Hgb 10.8 L, Hct 32.0 L 05/15/18 23:40: Hgb 9.0 L D, Hct 25.7 L 05/16/18 06:20: WBC 11.3 H D, RBC 2.51 L D, Hgb 8.4 L, Hct 23.7 L*, MCV 94.3 H, MCH 33.5 H, MCHC 35.5 H, RDW 15.4, Plt Count 116 L D, MPV 8.6, Neut % (Auto) 72.7, Lymph % (Auto) 20.7, [place] % (Auto) 4.8, Eos % (Auto) 1.1, Baso % (Auto) 0.7, Neut # (Auto) 8.3 H, Lymph # (Auto) 2.4, [place] # (Auto) 0.5, Eos # (Auto) 0.1, Baso # (Auto) 0.1 05/16/18 06:20: Sodium 139, Potassium 3.7 D, Chloride 107, Carbon Dioxide 24, Anion Gap 11.7, BUN 34 H, Creatinine 0.92, Estimated Creat Clear 141, Estimated GFR 86, Est GFR ( Amer) 104, Glucose 159 H D, Calcium 8.2 L 05/16/18 07:13: Blood Type Confirm A Positive I & O for Last 24 hours: Intake & Output 05/14/18 05/15/18 05/16/18 05/17/18 11:59 11:59 11:59 11:59 Intake Total 360 / 360 Balance 360 / 360 Weight 240 lb Assessment and Plan (1) Upper gastrointestinal bleed Current visit: Yes Status: Acute Category: Medical Code(s): K92.2 - Gastrointestinal hemorrhage, unspecified (2) Hematemesis Current visit: No Status: Acute Qualifiers: Nausea presence: with nausea Qualified Code(s): K92.0 - Hematemesis Category: Medical Code(s): K92.0 - Hematemesis
[2018-05-16 18:13] LABS: Basophils # 0.1 K/mm3 (0-0.2); Basophils % 0.6 % (0.1-2.0); Eosinophils # 0.1 K/mm3 (0.0-0.4); Eosinophils % 1.1 % (0.1-12.0); Lymphocytes # 1.7 K/mm3 (0.7-4.5); Lymphocytes % 19.7 % (10-50); Mean Corpuscular HGB Conc 34.6 g/dL (31.8-35.4); Mean Corpuscular Hemoglobin 33.3 pg (27.0-31.2); Mean Corpuscular Volume 96.3 fl (80-94); Mean Platelet Volume 8.8 fl (7.4-10.4); Monocytes # 0.5 K/mm3 (0.1-1.0); Monocytes % 6.1 % (1.7-9.3); Neutrophils # 6.2 K/mm3 (1.8-7.8); Neutrophils % 72.4 % (37.0-80.0); Platelet Count 98 K/mm3 (142-424); Red Blood Count 2.35 M/mm3 (4.60-6.20); Red Cell Distribution Width 15.8 % (11.5-17.5); White Blood Count 8.6 K/mm3 (4.8-10.8)
[2018-05-16 18:19] LABS: Hematocrit 22.6 % (42.0-52.0); Hemoglobin 7.8 g/dL (14.1-18.0)
[2018-05-17 10:02] LABS: Basophils % 0.5 % (0.1-2.0); Eosinophils # 0.1 K/mm3 (0.0-0.4); Eosinophils % 1.5 % (0.1-12.0); Mean Corpuscular HGB Conc 34.6 g/dL (31.8-35.4); Mean Corpuscular Volume 95.6 fl (80-94); Mean Platelet Volume 9.5 fl (7.4-10.4); Monocytes # 0.3 K/mm3 (0.1-1.0); Monocytes % 6.7 % (1.7-9.3); Neutrophils # 3.2 K/mm3 (1.8-7.8); Neutrophils % 70.3 % (37.0-80.0); Platelet Count 62 K/mm3 (142-424); Red Blood Count 2.11 M/mm3 (4.60-6.20); White Blood Count 4.6 K/mm3 (4.8-10.8)
[2018-05-17 10:13] LABS: Hematocrit 20.2 % (42.0-52.0)
[2018-05-17 10:14] LABS: Anion Gap 12.4 mEq/L (5-15); Calcium 7.9 mg/dL (8.5-10.1); Potassium 3.4 mmoL/L (3.5-5.1)
--- NOTE | 2018-05-17 10:44 | Procedure Note ---
- Procedure: Date: 05/17/18 Procedure Performed:: Esophagogastroduodenoscopy with biopsy Indications:: Upper gastrointestinal hemorrhage Performing Provider:: Rancho Ruiz MD Referring Provider:: Dr. Linda Sedation:: Monitored anesthesia care Procedure:: After informed consent was obtained the patient was taken to the endoscopy suite. Sedation ensued after the patient was transferred to the left lateral decubitus position. Pulse, blood pressure, and oxygen saturation were monitored throughout the procedure. The endoscope was advanced beyond the duodenal bulb. Retroflexion within the gastric lumen was accomplished. The gastroscope was carefully removed and the patient was transferred to recovery in stable condition. Please see "findings" and "specimens" below for detail. Findings:: Distal esophageal varices with no sign of active or recent hemorrhage Gastroduodenitis with no sign of active hemorrhage No definitive ulcerations noted (some areas difficult to visualize secondary to spasticity) Gastroesophageal junction at 42 cm Specimens:: Antral biopsy Gastric body biopsy Recommendations:: Continue PPI Possible gastroenterology evaluation secondary to hepatic insufficiency/varices Transfuse as per primary service Ongoing evaluation with regard to possible gastrointestinal blood loss (likely to be completed by gastroenterology) Complications:: No immediate Estimated blood obtained (mL): 1
[2018-05-18 02:04] LABS: Hematocrit 22.5 % (42.0-52.0); Hemoglobin 7.9 g/dL (14.1-18.0)
--- NOTE | 2018-05-18 07:14 | Progress Note ---
Subjective Patient reports: no new complaints (feels "a little lightheaded".) Exam Vital signs and Labs for Last 24 Hours: Temp Pulse Resp BP Pulse Ox 98.6 F 94 H 22 95/62 L 94 L 05/18/18 04:00 05/18/18 04:00 05/18/18 04:00 05/18/18 04:00 05/18/18 04:00 Laboratory Results - last 24 hr 05/15/18 16:00: Blood Type A Positive, Antibody Screen Negative, Crossmatch (AHG) See Detail 05/17/18 09:53: WBC 4.6 L D, RBC 2.11 L, Hgb 7.0 L*, Hct 20.2 L*, MCV 95.6 H, MCH 33.0 H, MCHC 34.6, RDW 16.0, Plt Count 62 L D, MPV 9.5, Neut % (Auto) 70.3, Lymph % (Auto) 21.0, [place] % (Auto) 6.7, Eos % (Auto) 1.5, Baso % (Auto) 0.5, Neut # (Auto) 3.2, Lymph # (Auto) 1.0, [place] # (Auto) 0.3, Eos # (Auto) 0.1, Baso # (Auto) 0.0 05/17/18 09:53: Sodium 138, Potassium 3.4 L, Chloride 106, Carbon Dioxide 23, Anion Gap 12.4, BUN 18 D, Creatinine 0.91, Estimated Creat Clear 143, Estimated GFR 87, Est GFR ( Amer) 105, Glucose 143 H, Calcium 7.9 L 05/18/18 01:50: Hgb 7.9 L*, Hct 22.5 L* I & O for Last 24 hours: Intake & Output 05/15/18 05/16/18 05/17/18 05/18/18 11:59 11:59 11:59 11:59 Intake Total 360 / 360 2160 / 2160 1580 / 1580 Balance 360 / 360 2160 / 2160 1580 / 1580 Weight 240 lb 240 lb - Constitutional no acute distress - *Routine Respiratory Exam Absent: respiratory distress - *Routine Cardiovascular Exam Present: RRR - *Routine Abdominal Exam Present: soft Progress Note: A&P (1) Upper gastrointestinal bleed Status: Acute Assessment and plan: Source is not definitive as he could have bled from varices, gastroduodenitis, or small ulceration (not visualized secondary to spasticity). Although he does not have signs of ongoing hemorrhage, he did not have an excellent response to a 2 unit blood transfusion. Repeat CBC pending. F/U pending CBC. May need IV fluids decreased as secondary dilutional effect are a possibility. Continue current medical therapy. Pending gastroenterology consultation (likely as outpatient). Current Visit: Yes (2) Hematemesis Status: Acute Current Visit: No
[2018-05-18 07:28] LABS: Basophils % 0.5 % (0.1-2.0); Eosinophils # 0.1 K/mm3 (0.0-0.4); Eosinophils % 1.6 % (0.1-12.0); Lymphocytes # 0.9 K/mm3 (0.7-4.5); Lymphocytes % 21.1 % (10-50); Mean Corpuscular HGB Conc 34.9 g/dL (31.8-35.4); Mean Corpuscular Hemoglobin 31.9 pg (27.0-31.2); Mean Corpuscular Volume 91.3 fl (80-94); Monocytes # 0.3 K/mm3 (0.1-1.0); Neutrophils # 2.9 K/mm3 (1.8-7.8); Neutrophils % 70.8 % (37.0-80.0); Platelet Count 60 K/mm3 (142-424); Red Cell Distribution Width 17.9 % (11.5-17.5); White Blood Count 4.1 K/mm3 (4.8-10.8)
[2018-05-18 07:42] LABS: Hematocrit 22.8 % (42.0-52.0)
--- NOTE | 2018-05-18 09:20 | Progress Note ---
Internal Medicine - PN: Subj *Date: 05/17/18 *Time: 08:00 Interval history: doing better - had egd Exam Vital signs and Labs for Last 24 Hours: Temp Pulse Resp BP Pulse Ox 98.9 F 97 H 17 122/72 96 05/18/18 08:00 05/18/18 08:55 05/18/18 08:00 05/18/18 08:55 05/18/18 08:00 Laboratory Results - last 24 hr 05/15/18 16:00: Blood Type A Positive, Antibody Screen Negative, Crossmatch (AHG) See Detail 05/17/18 09:53: WBC 4.6 L D, RBC 2.11 L, Hgb 7.0 L*, Hct 20.2 L*, MCV 95.6 H, MCH 33.0 H, MCHC 34.6, RDW 16.0, Plt Count 62 L D, MPV 9.5, Neut % (Auto) 70.3, Lymph % (Auto) 21.0, [place] % (Auto) 6.7, Eos % (Auto) 1.5, Baso % (Auto) 0.5, Neut # (Auto) 3.2, Lymph # (Auto) 1.0, [place] # (Auto) 0.3, Eos # (Auto) 0.1, Baso # (Auto) 0.0 05/17/18 09:53: Sodium 138, Potassium 3.4 L, Chloride 106, Carbon Dioxide 23, Anion Gap 12.4, BUN 18 D, Creatinine 0.91, Estimated Creat Clear 143, Estimated GFR 87, Est GFR ( Amer) 105, Glucose 143 H, Calcium 7.9 L 05/18/18 01:50: Hgb 7.9 L*, Hct 22.5 L* 05/18/18 07:05: WBC 4.1 L, RBC 2.50 L, Hgb 8.0 L, Hct 22.8 L*, MCV 91.3, MCH 31.9 H, MCHC 34.9, RDW 17.9 H, Plt Count 60 L, MPV 9.0, Neut % (Auto) 70.8, Lymph % (Auto) 21.1, [place] % (Auto) 6.0, Eos % (Auto) 1.6, Baso % (Auto) 0.5, Neut # (Auto) 2.9, Lymph # (Auto) 0.9, [place] # (Auto) 0.3, Eos # (Auto) 0.1, Baso # (Auto) 0.0 I & O for Last 24 hours: Intake & Output 05/15/18 05/16/18 05/17/18 05/18/18 11:59 11:59 11:59 11:59 Intake Total 360 / 360 2160 / 2160 1939 Balance 360 / 360 2160 / 2160 1939 Weight 240 lb 240 lb - Constitutional no acute distress - *Routine HEENT Exam Head: Present: normocephalic Eye: Present: EOMI, conjunctivae pink ENT: Present: mucous membranes dry - *Routine Neck Exam Present: supple - *Routine Respiratory Exam Present: CTA bilaterally - *Routine Abdominal Exam Present: soft - *Routine Extremities Exam Present: full ROM - *Routine Skin Exam Present: intact - *Routine Neurological Exam Present: alert, CN II-XII intact - Routine Psychiatric Exam Present: normal affect Assessment and Plan (1) Upper gastrointestinal bleed Current visit: Yes Status: Acute Category: Medical Code(s): K92.2 - Gastrointestinal hemorrhage, unspecified (2) Hematemesis Current visit: No Status: Acute Qualifiers: Nausea presence: with nausea Qualified Code(s): K92.0 - Hematemesis Category: Medical Code(s): K92.0 - Hematemesis
[2018-05-18 10:24] LABS: Hematocrit 25.3 % (42.0-52.0); Hemoglobin 8.8 g/dL (14.1-18.0)
--- NOTE | 2018-05-18 13:52 | Discharge Summary ---
General - General Admission date:: 05/15/18 Discharge date: 05/18/18 HPI HPI: [facility] has known [facility] disease and was seen in the ed a few days ago and then continued with sx - Hospital Course Hospital Course: Surgery consult see note EGD see report Packed red blood cells-Today patient's H&H has increased. Will discharge home on Carafate and Protonix. Will arrange outpatient follow-up with Dr. Abreu. Repeat H&H in 2 days to monitor stabilization. Objective Vital signs: Temp Pulse Resp BP Pulse Ox 98.2 F 84 17 113/63 98 05/18/18 11:28 05/18/18 11:28 05/18/18 11:28 05/18/18 11:28 05/18/18 11:28 no acute distress - *Routine HEENT Exam Head: Present: normocephalic Eye: Present: PERRL ENT: Present: mucous membranes moist - *Routine Neck Exam Present: full ROM - *Routine Respiratory Exam Present: CTA bilaterally - *Routine Cardiovascular Exam Present: RRR - *Routine Abdominal Exam Present: soft, normoactive bowel sounds, tenderness Comments: Tenderness in the right upper quad - *Routine Extremities Exam Present: full ROM - *Routine Skin Exam Present: intact - *Routine Neurological Exam Present: alert, oriented X3 - Routine Psychiatric Exam Present: normal affect Results Labs on day of discharge: Labs from last 24 hours 05/18/18 05/18/18 05/18/18 09:55 07:05 01:50 WBC 4.1 L RBC 2.50 L Hgb 8.8 L 8.0 L 7.9 L* Hct 25.3 L 22.8 L* 22.5 L* MCV 91.3 MCH 31.9 H MCHC 34.9 RDW 17.9 H Plt Count 60 L MPV 9.0 Neut % (Auto) 70.8 Lymph % (Auto) 21.1 [place] % (Auto) 6.0 Eos % (Auto) 1.6 Baso % (Auto) 0.5 Neut # (Auto) 2.9 Lymph # (Auto) 0.9 [place] # (Auto) 0.3 Eos # (Auto) 0.1 Baso # (Auto) 0.0 Blood Type Antibody Screen Crossmatch (AHG) 05/15/18 16:00 WBC RBC Hgb Hct MCV MCH MCHC RDW Plt Count MPV Neut % (Auto) Lymph % (Auto) [place] % (Auto) Eos % (Auto) Baso % (Auto) Neut # (Auto) Lymph # (Auto) [place] # (Auto) Eos # (Auto) Baso # (Auto) Blood Type A Positive Antibody Screen Negative Crossmatch (AHG) See Detail - Additional Comments Rounded with Dr. Linda all orders per Maddi DS: Diagnosis - Discharge Diagnosis (1) Upper gastrointestinal bleed Status: Acute (2) Hematemesis Status: Acute Discharge Plan - Patient Discharge Instructions ACTIVITY: Continue current activity DIET: continue same diet Patient Instructions: Gastrointestinal Bleeding - Follow up Plan Follow up with: Rancho Ruiz MD [Staff Physician] - 1 week Waqas Abreu MD [Staff Physician] - 1 week Real Linda MD [Primary Care Provider] - 1 week Disposition: Home, Self-Custodial Medications: Home Medications Medication Instructions Recorded Confirmed Type doxepin 150 mg capsule 150 mg PO HS 11/24/17 05/16/18 History Amlodipine Besylate 2.5 mg PO DAILY 05/14/18 05/15/18 History Aspirin [Aspirin 81mg chewable 81 mg PO DAILY 05/14/18 05/15/18 History tab] Bisoprolol Fumarate [Bisoprolol 5 mg PO DAILY 05/14/18 05/15/18 History 5mg Tablet] Ibuprofen [Ibuprofen 400mg 400 mg PO TIDP PRN 05/16/18 05/16/18 History Tablet] Trazodone HCl 50 mg PO HS 05/16/18 05/16/18 History hydrOXYzine HCl [Hydroxyzine HCl] 50 mg PO HS 05/16/18 05/16/18 History Pantoprazole Sodium [Protonix 40mg 40 mg PO HS 30 Days #30 tab 05/18/18 Rx tablet] Sucralfate [Carafate 1gm/10mL Susp 1 gm PO ACHS 10 Days #40 udc 05/18/18 Rx Udc] Prescriptions/Medication Reconciliation: New Sucralfate [Carafate 1gm/10mL Susp Udc] 1 gm PO ACHS 10 Days #40 udc Amlodipine Besylate [Norvasc 2.5mg tablet] 2.5 mg PO DAILY tablet Bisoprolol Fumarate [Zebeta 5mg tablet] 5 mg PO DAILY tablet Doxepin HCl [Sinequin 50mg capsule] 150 mg PO HS capsule Pantoprazole Sodium [Protonix 40mg tablet] 40 mg PO HS 30 Days #30 tab Continue Trazodone HCl 50 mg PO HS Discontinued doxepin 150 mg capsule 150 mg PO HS Bisoprolol Fumarate [Bisoprolol 5mg Tablet] 5 mg PO DAILY Aspirin [Aspirin 81mg chewable tab] 81 mg PO DAILY Amlodipine Besylate 2.5 mg PO DAILY hydrOXYzine HCl [Hydroxyzine HCl] 50 mg PO HS Ibuprofen [Ibuprofen 400mg Tablet] 400 mg PO TIDP PRN PRN Reason: PAIN/FEVER
== END 2018-05-18 15:15 | disposition home or self-care (01) | DRG 379 ==
LOC: 2ND 14:23 → ER 14:23 → OBSVTOIN 15:59 → 2ND 16:34
PROVIDERS: ADMIT Internal Medicine Adolescent Medicine; ATTEND Emergency Medicine
CPT/HCPCS: 36415; 71020; 71046; 74021; 74022; 80048; 80053; 82272; 83690; 84484; 85007; 85014; 85018; 85025; 85378; 85610; 85730; 86850; 93005; 96365; 96374; 96375; 99283; 99284; G0328; P9016

== ENCOUNTER → 2018-05-31 09:04 | Outpatient (POV) | payer BC, SELFPAY | PROVIDERS: Visit Provider Nurse Practitioner Acute Care | DX: Z00.00 Encounter for general adult medical examination without abnormal findings (principal) ==

== ENCOUNTER 2018-06-29 15:00 | Outpatient (RCR) | payer BC, SELFPAY ==
--- NOTE | 2018-06-08 13:24 | [facility].PTOPWND ---
Rehab Outpt Wound Evaluation Rehab OP Wound Evaluation Start: 06/08/18 12:48 Freq: Status: Active Protocol: Document 06/08/18 13:15 PHOSARTHAK (Rec: 06/08/18 13:24 PHORNE [id number]) Electronically Signed By Chip Cai, PT 06/08/18 13:15 Subjective/History History History Pt is a 53 yowm who presents with c/o cuca LE edema x ~ 2-3 mos with insidious onset of symptoms. He reports he was hospitalized late last year with hematemesis and required a transfusion and fluids. He reports his swelling began during that hospital admission . He reports less edema now afetr being prescribed lasix by the MD. He is concerned about these red spots on my legs, but appears to have only dry skin with possible eczema and mild excoriation. He reports PMH of HTN, COPD, and unknown liver issues. Subjective Subjective Pt reports pain 0/10 at rest and 4/10 with movement. Lymphedema Eval Classification of Lymphedema Secondary Lymphedema Yes Stemmer's sign Stemmer's Sign no Stage of Lymphedema Lymphedema stages Stage I (Pitting edema, reduces w/ elevation, no fibrosis) Skin Changes Dry Skin Yes Redness Yes Other Changes Yes Pain Scale Pain Scale (0-10) 4 Affected Extremities Areas Affected by Lymphedema/Edema Right Lower Extremity Left Lower Extremity Manual Lymphatic Drainage Treatment Area MLD Treatment Area Right Lower Extremity Left Lower Extremity Wound Problems/Impairments Impairments Problems/Impairmments Palpation Tenderness Impaired Recreational Activities Increased Edema Lymphedema Present Wound Care Needs Subjective C/O Pain Impaired Self Care/Self Management Prognosis Rehab Potential Good Clinical Impression Consistent with Diagnosis Yes Short Term Goals Number of Weeks 4 Decreased Palpation Tenderness
== END 2018-06-29 15:05 | disposition home or self-care (01) ==
LOC: PT 15:00
PROVIDERS: Visit Provider Emergency Medicine
DX: I89.0 Lymphedema, not elsewhere classified (principal)
CPT/HCPCS: 97110; 97140; 97162; 97760

== ENCOUNTER 2018-10-31 19:38 | Observation (INO) ==
[2018-10-31 20:00] LABS: Basophils % 0.5 % (0.1-2.0); Eosinophils # 0.1 K/mm3 (0.0-0.4); Eosinophils % 0.7 % (0.1-12.0); Hematocrit 33.8 % (42.0-52.0); Hemoglobin 10.8 g/dL (14.1-18.0); Lymphocytes # 1.1 K/mm3 (0.7-4.5); Lymphocytes % 16.8 % (10-50); Mean Corpuscular HGB Conc 31.8 g/dL (31.8-35.4); Mean Corpuscular Volume 82.1 fl (80-94); Mean Platelet Volume 8.7 fl (7.4-10.4); Monocytes # 0.3 K/mm3 (0.1-1.0); Monocytes % 4.9 % (1.7-9.3); Neutrophils # 5.2 K/mm3 (1.8-7.8); Platelet Count 107 K/mm3 (142-424); Red Blood Count 4.12 M/mm3 (4.60-6.20); Red Cell Distribution Width 17.9 % (11.5-17.5); White Blood Count 6.7 K/mm3 (4.8-10.8)
--- NOTE | 2018-10-31 20:10 | Emergency Department Note ---
ED Disposition Clinical Impression: Upper gastrointestinal bleed, Elevated LFTs, Obesity (BMI 30.0-34.9), Liver mass, Portal hypertension, Bipolar 1 disorder Anemia Qualifiers: Anemia type: unspecified type Qualified Code(s): D64.9 - Anemia, unspecified Disposition: Admitted as Observation Condition on Discharge: Good Instructions: DI for Acute Abdomen Referrals: Provider,Referral, MD [Primary Care Provider] - - Critical Care Critical Care Time: No Attestation: On 10/31/18, the high probability of a clinically significant, sudden or life threatening deterioration of the following system(s) required my full and direct attention, intervention and personal management. The time I documented below is in addition to time spent performing reported procedures but includes the following listed in this critical care notation. Medical Decision Making - Medical Records Medical records reviewed: Yes: I reviewed the patient's medical records. - Thomas Inquiry Pt receiving controlled substance: No Vital Signs: 10/31/18 19:39 Temperature 98.4 F Temperature Source Oral Pulse Rate [Right Brachial] 106 H Respiratory Rate 12 Blood Pressure [Right Arm] 147/100 H Blood Pressure Mean [Right Arm] 115 02 Sat by Pulse Oximetry 98 Oxygen Delivery Method Room Air - Lab Data Lab results reviewed: Yes: I reviewed the patient's lab results. Lab Results 10/31/18 19:50: WBC 6.7, RBC 4.12 L, Hgb 10.8 L, Hct 33.8 L, MCV 82.1, MCH 26.1 L, MCHC 31.8, RDW 17.9 H, Plt Count 107 L, MPV 8.7, Neut % (Auto) 77.0, Lymph % (Auto) 16.8, [place] % (Auto) 4.9, Eos % (Auto) 0.7, Baso % (Auto) 0.5, Neut # (Auto) 5.2, Lymph # (Auto) 1.1, [place] # (Auto) 0.3, Eos # (Auto) 0.1, Baso # (Auto) 0.0, ESR 56 H 10/31/18 19:50: Sodium 135 L, Potassium 4.4, Chloride 103, Carbon Dioxide 25, Anion Gap 11.4, BUN 29 H, Creatinine 1.05, Estimated Creat Clear 127, Estimated GFR 73, Est GFR ( Amer) 89, Glucose 133 H, Calcium 8.8, Total Bilirubin 1.2 H, AST 195 H, ALT 104 H, Alkaline Phosphatase 161 H, C-Reactive Protein 0.8, Total Protein 7.1, Albumin 2.3 L, Globulin 4.8 H, Albumin/Globulin Ratio 0.5 L, Amylase 20 L, Lipase 70 L 10/31/18 23:45: Stool Occult Blood Positive A Result diagrams: 10/31/18 19:50 10/31/18 19:50 Orders (Tests/Meds): ED MEDICATIONS Generic Name Dose Route Start Last Admin Trade Name Freq PRN Reason Stop Dose Admin Sodium Chloride 1,000 mls @ 999 mls/hr 10/31/18 19:45 10/31/18 19:52 Sod Chlor 0.9% 1000ml Bag IV 10/31/18 20:45 999 mls/hr .Q1H1M CASI Administration Sodium Chloride 10 ml 10/31/18 19:43 10/31/18 19:52 Saline Flush 10ml Syringe IV 11/30/18 19:42 10 ml NEEDED PRN Administration Maintain IV Site Sodium Chloride 10 ml 10/31/18 19:43 Saline Flush 10ml Syringe IV 11/30/18 19:42 NEEDED PRN Maintain IV Site Discontinued Medications Generic Name Dose Route Start Last Admin Trade Name Freq PRN Reason Stop Dose Admin Diatrizoate Meglum/Diatrizoate Sod 30 ml 10/31/18 19:43 10/31/18 19:52 Gastrografin 66%-10% 30ml PO 10/31/18 19:44 30 ml ONCE ONE Administration Famotidine 20 mg 10/31/18 19:42 10/31/18 19:51 Pepcid 20mg/2ml Vial IV 10/31/18 19:43 20 mg ONCE ONE Administration Ioversol 75 ml 10/31/18 21:56 10/31/18 21:57 Rad-Optiray 350 100ml Vial IV 10/31/18 21:57 75 ml ONCE ONE Administration Protocol Ondansetron HCl 4 mg 10/31/18 19:42 10/31/18 19:51 Zofran 4mg/2ml Vial IV 10/31/18 19:43 4 mg ONCE ONE Administration Pantoprazole Sodium 40 mg 10/31/18 19:43 10/31/18 19:52 Protonix 40mg Vial IV 10/31/18 19:44 40 mg ONCE ONE Administration Sodium Chloride 8 ml 10/31/18 19:43 10/31/18 19:51 Saline Flush 10ml Syringe IV 10/31/18 19:44 8 ml ONCE ONE Administration Sodium Chloride 8 ml 10/31/18 19:43 10/31/18 19:51 Saline Flush 10ml Syringe IV 10/31/18 19:44 8 ml ONCE ONE Administration Sodium Chloride 10 ml 10/31/18 21:56 10/31/18 21:57 Rad-Saline Flush 10ml Syringe IV 10/31/18 21:57 10 ml ONCE ONE Administration ORDERS Category Date Time Status CT abdomen pelvis w con Stat Cat Scan 10/31/18 19:42 Taken Urinalysis and Microscopic Stat Lab 10/31/18 19:42 Ordered - CT Data CT Scan: Abdomen, Pelvis Time Received: 23:[address] Reviewed: Yes: I have viewed the radiologist's interpretation Preliminary Findings: Abnormal (see report ) Nausea/Vomiting/Diarrhea HPI - General Chief complaint: Abdominal Pain Stated complaint: abd pain, tarry stools, high bp Time Seen by Provider: 10/31/18 20:00 Mode of Arrival: EMS Source of Information: Patient, EMS, Medical Record Limitations: No Limitations Description of Symptoms (Recalled from ER Triage Doc. by RN): Pt sent from [facility] for c/o loss of appetite, upper abdominal pain, high bp, and dark stool garrett t started today. - History of Present Illness HPI Narrative: pt [facility] eval of upper abd pain with dark stool with hx of upper gi bleed in 05/25- pt with hx of possible lliver mass and on meds - no vomiting - MD complaint: nausea, abdominal pain, other Onset (ago): day(s) Associated Abdominal Pain: Yes Location of pain: epigastric Severity: moderate Associated symptoms: denies other symptoms - Related Data Home Medications Medication Instructions Recorded Confirmed Trazodone HCl 50 mg PO HS 05/16/18 10/31/18 Bisoprolol Fumarate [Zebeta 5mg 5 mg PO DAILY 10/31/18 10/31/18 tablet] Cefdinir [Omnicef 300mg Capsule] 300 mg PO BID 10/31/18 10/31/18 Doxepin HCl [Sinequin 50mg capsule] 150 mg PO HS 10/31/18 10/31/18 Lenvatinib Mesylate [Lenvima] 8 mg PO HS 10/31/18 10/31/18 Pantoprazole Sodium [Protonix 40mg 40 mg PO HS 10/31/18 10/31/18 tablet] Prochlorperazine Maleate 10 mg PO Q6 PRN 10/31/18 10/31/18 [Compazine] Sucralfate [Sucralfate 1gm 1 mg PO ACHS 10/31/18 10/31/18 Tab] Allergies Allergy/AdvReac Type Severity Reaction Status Date / Time acetaminophen [From Percocet] Allergy Mild Verified 05/25/18 10:50 haloperidol [From Haldol] Allergy Mild Verified 05/25/18 10:50 oxycodone [From Percocet] Allergy Mild Verified 05/25/18 10:50 risperidone [From Risperdal] Allergy Mild Verified 05/25/18 10:50 [facility] History - Hepatitis A Screen Drug use history?: No High risk sexual behaviors?: No History of sexually transmitted infection?: No Currently employed?: No Childcare worker?: No Do you have indoor plumbing?: Yes Do you have electricity?: Yes Attestation statement:: This patient has been screened for Hepatitis A risk factors. I have reviewed the patient's past medical history: Yes Medical History: Reports:: Chronic Obstructive Pulmonary Disease (COPD), Depression, Hypertension Denies:: Diabetes Mellitus Type 1, Diabetes Mellitus Type 2 Other Medical History: Reports: Liver Disease Other Surgeries: Yes: Cholecystectomy - Social History Smoking Status: Current every day smoker # Packs/Day (cigarettes): 1 Alcohol Intake: never Substance Use Type: denies use Occupational Status: disabled Housing: alf Household Members: other - Psychiatric History Pschychiatric History:: Reports:: Depression Family Hx:: No significant family history ROS Obtained: Yes All systems reviewed & no additional complaints - Constitutional Constitutional: Denies fever(s) - Eyes Eyes: Denies change in vision - ENT Ears, Nose, Mouth, and Throat: Denies sore throat - Cardiovascular Cardiovascular: Denies chest pain - Respiratory Respiratory: No cough - Gastrointestinal Gastrointestingal: Reports: as per HPI, abdominal pain, black, tarry stools, nausea. Denies: coffee ground emesis - Genitourinary Male Genitourinary: Denies hematuria - Musculoskeletal Musculoskeletal: Denies joint pain, Denies joint swelling - Integumentary/Breasts Skin/Breast: Denies rash - Neurologic Neurologic: Denies convulsions, Denies headache(s), Denies seizure-like activity Physical Exam - General General appearance: alert, in no apparent distress, obese - Head Head exam: normocephalic - Eye Eye exam: Present: PERRL, EOMI. Absent: scleral icterus - ENT ENT exam: Present: mucous membranes dry - Neck Neck exam: Present: trachea midline - Respiratory Respiratory exam: Present: normal lung sounds bilaterally. Absent: respiratory distress - Cardiovascular Cardiovascular exam: Present: regular rate, systolic murmur - Abdominal Exam Abdominal exam: Present: soft, tenderness. Absent: guarding, rebound, rigidity Abdominal tenderness: Present: epigastrium, moderate - Rectal Exam Rectal exam: Present: heme (+) stool, black stool - Extremities Exam Extremities exam: Present: full ROM - Neurological Exam Neurological exam: Present: alert, oriented X3, CN II-XII intact - Psychiatric Psychiatric exam: Present: normal affect - Skin Skin exam: Absent: rash
[2018-10-31 20:14] LABS: Albumin Level 2.3 gm/dL (3.4-5.0); Albumin/Globulin Ratio 0.5 (1.1-1.8); Anion Gap 11.4 mEq/L (5-15); Bilirubin,Total 1.2 mg/dL (0.2-1.0); C-Reactive Protein 0.8 mg/L (0.0-0.9); Calcium 8.8 mg/dL (8.5-10.1); Globulin 4.8 gm/dl (1.3-3.2); Total Protein,Serum 7.1 gm/dL (6.4-8.2)
[2018-10-31 20:25] LABS: Erythrocyte Sedimentation Rate 56 mm/hr (0-20)
[2018-11-01 00:13] LABS: INR 1.23 (0.9-1.1); Prothrombin Time 12.7 seconds (9.4-11.8)
[2018-11-01 05:59] LABS: Basophils % 0.5 % (0.1-2.0); Eosinophils # 0.1 K/mm3 (0.0-0.4); Eosinophils % 2.6 % (0.1-12.0); Hematocrit 31.6 % (42.0-52.0); Lymphocytes # 0.9 K/mm3 (0.7-4.5); Lymphocytes % 23.8 % (10-50); Mean Corpuscular Volume 83.7 fl (80-94); Mean Platelet Volume 9.5 fl (7.4-10.4); Monocytes # 0.3 K/mm3 (0.1-1.0); Monocytes % 7.4 % (1.7-9.3); Neutrophils # 2.4 K/mm3 (1.8-7.8); Neutrophils % 65.6 % (37.0-80.0); Platelet Count 80 K/mm3 (142-424); Red Blood Count 3.77 M/mm3 (4.60-6.20); Red Cell Distribution Width 18.1 % (11.5-17.5); White Blood Count 3.7 K/mm3 (4.8-10.8)
[2018-11-01 06:00] LABS: Hemoglobin 9.5 g/dL (14.1-18.0)
[2018-11-01 06:09] LABS: Microscopic, Urine URINE MICROSCOPIC (MICROSCOPIC)
[2018-11-01 06:10] LABS: Anion Gap 9.6 mEq/L (5-15); Calcium 8.7 mg/dL (8.5-10.1)
[2018-11-01 07:10] LABS: Appearance,Urine CLEAR (Clear); Bilirubin,Urine Negative (Negative); Blood, Urine 2+ (Negative); Color,Urine YELLOW (Yellow); Glucose,Urine (UA) Negative (Negative); Ketones,Urine Negative (Negative); Leukocyte Esterase,Urine Negative (Negative); Protein,Urine 1+ (Negative)
[2018-11-01 07:23] LABS: Bacteria,Urine 1+ /lpf; Squamous Epithelial Cell,Urine Occasional #/hpf (0-5); WBC,Urine Occasional #/hpf (0-3)
--- NOTE | 2018-11-01 07:37 | Pharmacy Consult Notes ---
[facility] Pharmacy VTE Monitoring - Patient Demographics Admission date: 10/31/18 Report Date: 11/01/18 Time: 07:37 Allergies/Adverse Reactions: Patient Allergies acetaminophen [From Percocet] Allergy (Mild, Verified 05/25/18 10:50) haloperidol [From Haldol] Allergy (Mild, Verified 05/25/18 10:50) oxycodone [From Percocet] Allergy (Mild, Verified 05/25/18 10:50) risperidone [From Risperdal] Allergy (Mild, Verified 05/25/18 10:50) Height: 1.85 m Weight: 113.398 kg Patient Problems: Current Active Problems (Updated 11/01/18 @ 00:00 by Real Linda MD) Upper gastrointestinal bleed (Acute) Anemia (Acute) Elevated LFTs (Acute) Obesity (BMI 30.0-34.9) (Acute) Liver mass (Acute) Portal hypertension (Acute) Bipolar 1 disorder (Acute) - VTE Risk Labs: VTE Related Lab Results Hgb 9.5 g/dL (14.1-18.0) L D 11/01/18 05:30 Hct 31.6 % (42.0-52.0) L 11/01/18 05:30 Plt Count 80 K/mm3 (142-424) L D 11/01/18 05:30 PT 12.7 seconds (9.4-11.8) H 10/31/18 19:50 INR 1.23 (0.9-1.1) H 10/31/18 19:50 BUN 24 mg/dL (7-18) H 11/01/18 05:30 Creatinine 1.06 mg/dL (0.70-1.30) 11/01/18 05:30 Estimated Creat Clear 126 mL/min (50-200) 11/01/18 05:30 Was VTE Risk Assessment Performed: Yes VTE Score: 0 VTE Risk Level: Very Low Risk - Prophylaxis VTE Prophylaxis Ordered?: Yes Types of VTE Prophylaxis: TEDS Knee High Location of Applied Device: Bilateral Lower Extremeties - VTE Diagnosis Confirmed Treatment or plan recommended: Continue Current Treatment
--- NOTE | 2018-11-01 10:09 | Progress Note ---
[facility] Anesthesia Checklist - Patient Identification Patient Identification: Arm Band, Verbal (Name & ) - Structural Data Admitted From: Inpatient Planned Operative Procedure/s: EGD Consent for Planned Operative Procedure(s) Verified: Yes Verified Documents: Surgical Consent, History and Physical - NPO Status Verified Time NPO: 00:00 - Chart Verification Results Verified: CBC, BMP - Additional verifications Anesthesia Reactions: No - Airway Assessment C-Spine Mobility Assessed: Yes TMJ Mobility Assessed: Yes Dentition: Poor Dentition (Missing) - Neurological Assessment Level of Consciousness: Awake, Alert, Appropriate, Follows Commands Hx Seizures: No Numbness or tingling in extremities: No - Anesthesia Plan Anesthesia Risk discussed: Yes Anesthesia Plan: Verified ASA Class: III Anesthesia Type: MAC [facility] History I have reviewed the patient's past medical history: Yes Medical History: Reports:: Chronic Obstructive Pulmonary Disease (COPD), Depression, Hypertension Denies:: Diabetes Mellitus Type 1, Diabetes Mellitus Type 2 *Have you ever received a pneumonia vaccine?: No *Have you received a flu vaccine this season?: No Other Medical History: Reports: Anemia, Liver Disease (Liver Mass, Liver CA, chemotherapy) Other Surgeries: Yes: Cholecystectomy, EGD Amputation: No Fractures: No - *Social History Educational Level: Attended Grade School Smoking Status: Former smoker # Packs/Day (cigarettes): 1 Alcohol Intake: never Substance Use Type: denies use *Occupational Status:: disabled Housing: care home Household Members: other *Travel in the last 8 weeks: None - Psychiatric History Expresses thoughts of harming self/others: None Suicide Plan Description: No Plan Pschychiatric History:: Reports:: Depression Family Hx:: No significant family history
--- NOTE | 2018-11-01 10:45 | Procedure Note ---
[facility] Procedure Note Procedure Note:: Upper Endoscopy Procedure Report: Esophagogastroduodenoscopy with cold biopsies, APC ablation and variceal band ligation Endoscopost: Waqas Abreu II, MD Referring Physician: Real Linda MD Date of Procedure: November 01, 2018 Equipment: Olympus GIF 180 standard upper endoscope Sedation: MAC sedation Indications: Mr. Galdamez is a 53-year-old gentleman with chronic hepatitis C, cirrhosis and hepatocellular carcinoma. The patient did decline treatment. His CAT scan in June 2018 showed a 6.5 cm hepatocellular carcinoma with satellite nodules. His alpha-fetoprotein at that time had risen from 560 to 4284. The patient presents to the hospital with melena yesterday. He had a prior upper endoscopy by Dr. Rancho Ruiz M.D. He does get some painful swallowing with globus sensation, hoarseness, frequent clearance of the throat and some bloating. He reports some epigastric abdominal discomfort and dyspepsia. He does take ibuprofen every 3 or 4 days. He reports no heartburn or reflux. The patient's hemoglobin and hematocrit were 10.8 and 33.0. His alkaline phosphatase, 161, AST 195 and ALT 104 were mildly elevated. Procedure: Prior to the procedure, a history and physical exam was performed, and patient's medications and allergies were reviewed. The risks, benefits and alternatives of the sedation and procedure were discussed with the patient. All questions were answered and informed consent was obtained. The patient was brought to the procedure room. Patient identification and proposed procedure were verified by the physician and the nurse. The patient was placed in a left lateral decubitus position and the scope was passed under direct vision. Throughout the procedure , the patient's blood pressure, pulse, and oxygen saturations were monitored continuously. The upper GI endoscopy was accomplished without difficulty. The patient tolerated the procedure well. Findings: The scope was passed directly into the upper esophagus and advanced to the third portion of the duodenum. There were 2 angiodysplasia/AVMs in the first portion of the duodenum with some active heme. These were cauterized using APC ablation. The scope was withdrawn through a normal duodenal bulb and pylorus into the stomach. There was chronic gastritis with some chronic portal gastropathy within the body and fundus of the stomach. 2 biopsies were taken from the lesser curvature and antrum. Upon retroflexion there was no hiatal hernia and no gastric fundic varices. The scope was withdrawn into the esophagus. There were grade 2-3 esophageal varices. No stigmata were identified but based on the patient's melanotic stools, 5 bands were placed on these varices with excellent ligation effect. Impression: 1. Grade 2-3 esophageal varices without stigmata status post band ligation x5 2. Chronic gastritis and some chronic portal gastropathy 3. Duodenal AVM/angiodysplasia status post APC ablation Plan: I will discussed the findings with patient and family. The patient does have advanced hepatocellular carcinoma. He does have evidence of portal hypertension. He will likely need hospice involvement.
--- NOTE | 2018-11-01 12:28 | History & Physical Report ---
*Admission Date: 10/31/18 *Chief complaint: gi bleeding *History of present illness: [facility] - had dark stool and upper abd pain over the last few days -pt was seen in the ed with positive hemocult and low h/h and was admitted for treatment and eval [facility] History I have reviewed the patient's past medical history: Yes Medical History: Reports:: Chronic Obstructive Pulmonary Disease (COPD), Depression, Hypertension Denies:: Diabetes Mellitus Type 1, Diabetes Mellitus Type 2, Seizures *Have you ever received a pneumonia vaccine?: No *Have you received a flu vaccine this season?: No Other Medical History: Reports: Anemia, Liver Disease (Liver Mass, Liver CA, chemotherapy) Other Surgeries: Yes: Cholecystectomy, EGD Amputation: No Fractures: No - *Social History Educational Level: Attended Grade School Smoking Status: Former smoker # Packs/Day (cigarettes): 1 Alcohol Intake: never Substance Use Type: denies use *Occupational Status:: disabled Housing: longterm Household Members: other *Travel in the last 8 weeks: None - Psychiatric History Expresses thoughts of harming self/others: None Suicide Plan Description: No Plan Pschychiatric History:: Reports:: Depression Family Hx:: No significant family history Review of Systems - Review of Systems Review of systems:: pertinent systems reviewed and negative unless documented below - Constitutional Denies fever(s) - Eyes Denies change in vision - ENT Denies sore throat - *Cardiovascular Denies chest pain at rest - *Respiratory Denies cough - *Gastrointestinal Reports abdominal pain, Reports black, tarry stools, Reports nausea, Denies vomiting - *Genitourinary Denies blood in urine - *Musculoskeletal Denies joint pain - Integumentary/Breasts Denies rash - *Neurologic Denies seizure-like activity, Denies headache(s), Denies seizure-like activity - Psychiatric Denies anxiety Meds Home Medications Medication Instructions Recorded Confirmed Type Trazodone HCl 50 mg PO HS 05/16/18 10/31/18 History Bisoprolol Fumarate [Zebeta 5mg 5 mg PO DAILY 10/31/18 10/31/18 History tablet] Cefdinir [Omnicef 300mg Capsule] 300 mg PO BID 10/31/18 10/31/18 History Lenvatinib Mesylate [Lenvima] 8 mg PO HS 10/31/18 10/31/18 History Prochlorperazine Maleate 10 mg PO Q6HP PRN 10/31/18 11/01/18 History [Compazine] Sucralfate [Sucralfate 1gm 1 mg PO ACHS 10/31/18 10/31/18 History Tab] Albuterol Sulfate [Albuterol HFA 1 puff IH BIDP PRN 11/01/18 11/01/18 History Inhaler] Doxepin HCl 150 mg PO HS 11/01/18 11/01/18 History Lisinopril [Lisinopril 5mg 5 mg PO DAILY 11/01/18 11/01/18 History Tablet] Omeprazole [Omeprazole 20mg Tab] 20 mg PO DAILY 11/01/18 11/01/18 History Ondansetron [Ondansetron Odt 8mg 8 mg PO Q8HP PRN 11/01/18 11/01/18 History Tab] Allergies Allergy/AdvReac Type Severity Reaction Status Date / Time acetaminophen [From Percocet] Allergy Mild Verified 05/25/18 10:50 haloperidol [From Haldol] Allergy Mild Verified 05/25/18 10:50 oxycodone [From Percocet] Allergy Mild Verified 05/25/18 10:50 risperidone [From Risperdal] Allergy Mild Verified 05/25/18 10:50 Exam Vital signs and Labs for Last 24 Hours: Temp Pulse Resp BP Pulse Ox 98.7 F 77 18 131/75 95 11/01/18 11:55 11/01/18 11:55 11/01/18 11:55 11/01/18 11:55 11/01/18 11:55 Laboratory Results - last 24 hr 10/31/18 19:50: WBC 6.7, RBC 4.12 L, Hgb 10.8 L, Hct 33.8 L, MCV 82.1, MCH 26.1 L, MCHC 31.8, RDW 17.9 H, Plt Count 107 L, MPV 8.7, Neut % (Auto) 77.0, Lymph % (Auto) 16.8, [place] % (Auto) 4.9, Eos % (Auto) 0.7, Baso % (Auto) 0.5, Neut # (Auto) 5.2, Lymph # (Auto) 1.1, [place] # (Auto) 0.3, Eos # (Auto) 0.1, Baso # (Auto) 0.0, ESR 56 H 10/31/18 19:50: Sodium 135 L, Potassium 4.4, Chloride 103, Carbon Dioxide 25, Anion Gap 11.4, BUN 29 H, Creatinine 1.05, Estimated Creat Clear 127, Estimated GFR 73, Est GFR ( Amer) 89, Glucose 133 H, Calcium 8.8, Total Bilirubin 1.2 H, AST 195 H, ALT 104 H, Alkaline Phosphatase 161 H, C-Reactive Protein 0.8, Total Protein 7.1, Albumin 2.3 L, Globulin 4.8 H, Albumin/Globulin Ratio 0.5 L, Amylase 20 L, Lipase 70 L 10/31/18 19:50: PT 12.7 H, INR 1.23 H 10/31/18 23:45: Stool Occult Blood Positive A 11/01/18 05:30: WBC 3.7 L D, RBC 3.77 L, Hgb 9.5 L D, Hct 31.6 L, MCV 83.7, MCH 25.2 L, MCHC 30.0 L, RDW 18.1 H, Plt Count 80 L D, MPV 9.5, Neut % (Auto) 65.6, Lymph % (Auto) 23.8, [place] % (Auto) 7.4, Eos % (Auto) 2.6, Baso % (Auto) 0.5, Neut # (Auto) 2.4, Lymph # (Auto) 0.9, [place] # (Auto) 0.3, Eos # (Auto) 0.1, Baso # (Auto) 0.0 11/01/18 05:30: Sodium 139, Potassium 4.6, Chloride 107, Carbon Dioxide 27, Anion Gap 9.6, BUN 24 H, Creatinine 1.06, Estimated Creat Clear 126, Estimated GFR 73, Est GFR ( Amer) 88, Glucose 90 D, Calcium 8.7 11/01/18 06:00: Urine Color Yellow, Urine Appearance Clear, Urine pH 7.0, Ur Specific [place] 1.010, Urine Protein 1+, Urine Glucose (UA) Negative, Urine Ketones Negative, Urine Blood 2+, Urine Nitrate Negative, Urine Bilirubin Negative, Urine Urobilinogen 1.0, Ur Leukocyte Esterase Negative, Urine RBC 10- 20, Urine WBC Occasional, Ur Squamous Epith Cells Occasional, Urine Bacteria 1+ I & O for Last 24 hours: Intake & Output 10/30/18 10/31/18 11/01/18 11/02/18 11:59 11:59 11:59 11:59 Intake Total 1060 / 1060 Output Total 400 / 400 Balance 660 / 660 Weight 250 lb - Constitutional no acute distress, obese - *Routine HEENT Exam Head: Present: normocephalic Eye: Present: EOMI, PERRL ENT: Present: mucous membranes dry - *Routine Neck Exam Present: supple - *Routine Respiratory Exam Present: CTA bilaterally - *Routine Cardiovascular Exam Present: RRR, murmur - *Routine Abdominal Exam Present: soft, tenderness - *Routine Extremities Exam Present: full ROM - Routine Back/Spine/Pelvis Exam Back/Spine: Present: full ROM. Absent: CVA tenderness - *Routine Skin Exam Present: intact - *Routine Neurological Exam Present: alert, CN II-XII intact - Routine Psychiatric Exam Present: normal affect Assessment and Plan (1) Portal hypertension with esophageal varices Current visit: Yes Status: Acute Category: Medical Code(s): K76.6 - Portal hypertension; I85.00 - Esophageal varices without bleeding (2) Upper gastrointestinal bleed Current visit: Yes Status: Acute Category: Medical Code(s): K92.2 - Gastrointestinal hemorrhage, unspecified (3) Anemia Current visit: Yes Status: Acute Qualifiers: Anemia type: unspecified type Qualified Code(s): D64.9 - Anemia, unspecified Category: Medical Code(s): D64.9 - Anemia, unspecified (4) Elevated LFTs Current visit: Yes Status: Acute Category: Medical Code(s): R94.5 - Abnormal results of liver function studies (5) Obesity (BMI 30.0-34.9) Current visit: Yes Status: Acute Category: Medical Code(s): E66.9 - Obesity, unspecified (6) Liver mass Current visit: Yes Status: Acute Category: Medical Code(s): R16.0 - Hepatomegaly, not elsewhere classified
--- NOTE | 2018-11-02 13:11 | Discharge Summary ---
General - General Admission date:: 11/01/18 Discharge date: 11/02/18 HPI HPI: this wm who is resident [facility] - had dark stool and upper abd pain over the last few days -pt was seen in the ed with positive hemocult and low h/h and was admitted for treatment and eval Hospital Course Hospital Course: consult gi- see note stool occult blood pos ct abd pelvis:IMPRESSION: 1. Hepatic mass in the right hepatic lobe is slightly increased in size suspicious for neoplasm and could be either primary or metastatic. A new nodular lesion is present medial to the larger liver lesion and may be due to extension of that lesion or metastatic focus. Multifocal hepatocellular carcinoma is also a consideration There are a few other smaller nodules in the liver some of which are stable and some which are new possibly due to metastatic foci or new cysts. Mildly prominent periportal lymph nodes are once again noted. 2. Cirrhosis with portal hypertension and splenomegaly is enlarged splenic and portal vein. 3. Indeterminate right renal nodule slightly increased in size and may be better evaluate with ultrasound 4. Constipation per Dr abreu Note: Procedure: Prior to the procedure, a history and physical exam was performed, and patient's medications and allergies were reviewed. The risks, benefits and alternatives of the sedation and procedure were discussed with the patient. All questions were answered and informed consent was obtained. The patient was brought to the procedure room. Patient identification and proposed procedure were verified by the physician and the nurse. The patient was placed in a left lateral decubitus position and the scope was passed under direct vision. Throughout the procedure, the patient's blood pressure, pulse, and oxygen saturations were mon itored continuously. The upper GI endoscopy was accomplished without difficulty. The patient tolerated the procedure well. Findings: The scope was passed directly into the upper esophagus and advanced to the third portion of the duodenum. There were 2 angiodysplasia/AVMs in the first portion of the duodenum with some active heme. These were cauterized using APC ablation. The scope was withdrawn through a normal duodenal bulb and pylorus into the stomach. There was chronic gastritis with some chronic portal gastropathy within the body and fundus of the stomach. 2 biopsies were taken fr om the lesser curvature and antrum. Upon retroflexion there was no hiatal hernia and no gastric fundic varices. The scope was withdrawn into the esophagus. There were grade 2-3 esophageal varices. No stigmata were identified but based on the patient's melanotic stools, 5 bands were placed on these varices with excellent ligation effect. Impression: 1. Grade 2-3 esophageal varices without stigmata status post band ligation x5 2. Chronic gastritis and some chronic portal gastropathy 3. Duodenal AVM/angiodysplasia status post APC ablation Pt will be dc back to personal halfway, per sandhya note recommends hospice. follow up with arlene and dr abreu Objective Vital signs: Temp Pulse Resp BP Pulse Ox 98.5 F 84 16 128/68 98 11/02/18 08:00 11/02/18 08:00 11/02/18 08:00 11/02/18 08:00 11/02/18 08:00 no acute distress - *Routine HEENT Exam Head: Present: normocephalic Eye: Present: PERRL ENT: Present: mucous membranes moist - *Routine Neck Exam Present: supple - *Routine Respiratory Exam Present: CTA bilaterally - *Routine Cardiovascular Exam Present: RRR - *Routine Abdominal Exam Present: soft, normoactive bowel sounds. Absent: tenderness, distended, rebound, guarding, firm, rigid - *Routine Extremities Exam Present: full ROM - *Routine Skin Exam Present: intact - *Routine Neurological Exam Present: alert, oriented X3 - Routine Psychiatric Exam Present: normal affect Results - Additional Comments rounded with arlene all orders per arlene DS: Diagnosis - Discharge Diagnosis (1) Portal hypertension with esophageal varices Status: Acute (2) Upper gastrointestinal bleed Status: Acute (3) Anemia Status: Acute (4) Elevated LFTs Status: Acute (5) Obesity (BMI 30.0-34.9) Status: Acute (6) Liver mass Status: Acute Discharge Plan - Patient Discharge Instructions ACTIVITY: Continue current activity DIET: continue same diet Patient Instructions: DI for Gastrointestinal Bleeding - Follow up Plan Follow up with: Real Linda MD [Emergency Provider] - 11/03/18 Waqas Abreu MD [Staff Physician] - Disposition: Home, Self-Residential Medications: Home Medications Medication Instructions Recorded Confirmed Type Trazodone HCl 50 mg PO HS 05/16/18 10/31/18 History Bisoprolol Fumarate [Zebeta 5mg 5 mg PO DAILY 10/31/18 10/31/18 History tablet] Cefdinir [Omnicef 300mg Capsule] 300 mg PO BID 10/31/18 10/31/18 History Lenvatinib Mesylate [Lenvima] 8 mg PO HS 10/31/18 10/31/18 History Prochlorperazine Maleate 10 mg PO Q6HP PRN 10/31/18 11/01/18 History [Compazine] Sucralfate [Sucralfate 1gm 1 mg PO ACHS 10/31/18 10/31/18 History Tab] Albuterol Sulfate [Albuterol HFA 1 puff IH BIDP PRN 11/01/18 11/01/18 History Inhaler] Doxepin HCl 150 mg PO HS 11/01/18 11/01/18 History Lisinopril [Lisinopril 5mg 5 mg PO DAILY 11/01/18 11/01/18 History Tablet] Omeprazole [Omeprazole 20mg Tab] 20 mg PO DAILY 11/01/18 11/01/18 History Ondansetron [Ondansetron Odt 8mg 8 mg PO Q8HP PRN 11/01/18 11/01/18 History Tab] Prescriptions/Medication Reconciliation: Continued Trazodone HCl 50 mg PO HS Sucralfate [Sucralfate 1gm Tab] 1 mg PO ACHS Prochlorperazine Maleate [Compazine] 10 mg PO Q6HP PRN PRN Reason: Vomiting Lenvatinib Mesylate [Lenvima] 8 mg PO HS Lisinopril [Lisinopril 5mg Tablet] 5 mg PO DAILY Omeprazole [Omeprazole 20mg Tab] 20 mg PO DAILY Bisoprolol Fumarate [Zebeta 5mg tablet] 5 mg PO DAILY Albuterol Sulfate [Albuterol HFA Inhaler] 1 puff IH BIDP PRN PRN Reason: Shortness Of Breath Or Wheezing Doxepin HCl 150 mg PO HS Discontinued Cefdinir [Omnicef 300mg Capsule] 300 mg PO BID Ondansetron [Ondansetron Odt 8mg Tab] 8 mg PO Q8HP PRN PRN Reason: Nausea And Vomiting
== END 2018-11-02 14:30 | disposition home or self-care (01) ==
LOC: 2ND 19:38 → ER 19:38 → 2ND 11-01 00:08
PROVIDERS: ADMIT Emergency Medicine; ATTEND Emergency Medicine
CPT/HCPCS: 36415; 74177; 80048; 80053; 81001; 82150; 82272; 83690; 85025; 85610; 85651; 86140; 96365; 96375; 99284; C2618; G0328; G0378; J2405; Q9967

== ENCOUNTER 2018-12-05 15:49 | Observation (INO) ==
--- NOTE | 2018-12-05 16:38 | Emergency Department Note ---
ED Disposition Clinical Impression: Upper GI bleed Disposition: Admitted as Observation Condition on Discharge: Good Referrals: Real Linda MD [Primary Care Provider] - - Critical Care Critical Care Time: No Attestation: On 12/05/18, the high probability of a clinically significant, sudden or life threatening deterioration of the following system(s) required my full and direct attention, intervention and personal management. The time I documented below is in addition to time spent performing reported procedures but includes the following listed in this critical care notation. Medical Decision Making - Thomas Inquiry Pt receiving controlled substance: Yes (patient requests pain medication) Thomas was queried for this patient: No Reason not queried -: Emergent pt cond-no time Risks and benefits of using a controlled substance: were not discussed with pt by me Vital Signs: 12/05/18 15:50 12/05/18 16:01 12/05/18 16:55 Temperature 99.2 F Temperature Source Oral Pulse Rate [Left Radial] 85 88 95 H Respiratory Rate 18 Blood Pressure [Right Arm] 151/82 H 142/88 H 123/69 Blood Pressure Mean [Right Arm] 105 106 87 Blood Pressure Source [Right Arm] Automatic Cuff Automatic Cuff Blood Pressure Position [Right Arm] Sitting Sitting 02 Sat by Pulse Oximetry 97 98 99 Oxygen Delivery Method Room Air 12/05/18 17:30 12/05/18 18:00 Temperature Temperature Source Pulse Rate [Left Radial] 82 63 Respiratory Rate Blood Pressure [Right Arm] 104/84 L 120/84 Blood Pressure Mean [Right Arm] 90 96 Blood Pressure Source [Right Arm] Automatic Cuff Blood Pressure Position [Right Arm] Sitting 02 Sat by Pulse Oximetry 95 99 Oxygen Delivery Method - Lab Data Lab Results 12/05/18 15:48: WBC 4.1 L, RBC 3.60 L, Hgb 9.4 L, Hct 29.9 L, MCV 83.1, MCH 26.1 L, MCHC 31.3 L, RDW 17.3, Plt Count 96 L, MPV 9.2, Neut % (Auto) 62.5, Lymph % (Auto) 24.8, [place] % (Auto) 10.0 H, Eos % (Auto) 2.1, Baso % (Auto) 0.6, Neut # (Auto) 2.6, Lymph # (Auto) 1.0, [place] # (Auto) 0.4, Eos # (Auto) 0.1, Baso # (Auto) 0.0 12/05/18 15:48: Sodium 134 L, Potassium 4.0, Chloride 101, Carbon Dioxide 23, Anion Gap 14.0, BUN 17, Creatinine 1.04, Estimated Creat Clear 127, Estimated GFR 74, Est GFR ( Amer) 90, Glucose 83, Calcium 8.6, Total Bilirubin 0.8, AST 141 H, ALT 65, Alkaline Phosphatase 119 H, Total Protein 7.2, Albumin 2.6 L, Globulin 4.6 H, Albumin/Globulin Ratio 0.6 L 12/05/18 15:48: PT 13.0 H, INR 1.26 H 12/05/18 16:45: Stool Occult Blood Positive A 12/05/18 17:11: Urine Color Yellow, Urine Appearance Clear, Urine pH 6.5, Ur Specific [place] 1.010, Urine Protein 1+, Urine Glucose (UA) Negative, Urine Ketones Negative, Urine Blood 3+, Urine Nitrate Negative, Urine Bilirubin Negative, Urine Urobilinogen 0.2, Ur Leukocyte Esterase Negative, Urine RBC 20- 50, Urine WBC 3-5, Amorphous Sediment Trace Result diagrams: 12/05/18 15:48 12/05/18 15:48 Orders (Tests/Meds): ED MEDICATIONS Generic Name Dose Route Start Last Admin Trade Name Freq PRN Reason Stop Dose Admin Sodium Chloride 1,000 mls @ 999 mls/hr 12/05/18 16:15 12/05/18 18:08 Sod Chlor 0.9% 1000ml Bag IV 12/05/18 17:15 999 mls/hr .[id number] CASI Administration Discontinued Medications Generic Name Dose Route Start Last Admin Trade Name Freq PRN Reason Stop Dose Admin Morphine Sulfate 4 mg 12/05/18 17:37 12/05/18 18:08 Morphine 4mg/Ml Syringe IV 12/05/18 17:38 4 mg ONCE ONE Administration ORDERS Category Date Time Status Diarrhea 6-11 Panel, Cdiff PCR Stat Lab 12/05/18 18:08 Ordered - Physician Consults Physician Consulted: Michael Linda Time: 18:11 Reason -: Admission Comment/Response: Agrees to admit the patient to the hospital. We discussed the patient's clinical information, including history, exam, laboratory and radiology results and ED course. Per hospital procedure, I will write temporary bridge inpatient orders on the patient. Specific orders requested by the admitting physician: Admit observation. Recheck CBC in the morning. Diarrhea panel. Pain medication as needed. Medical Decision Narrative: Records reviewed. Admitted 11/01/2018 through 11/02/2018. Prior CT: FINDINGS: Mild atelectatic changes are present in the lung bases. Nodular opacity is present in the extreme right lung base at 9 mm. There is trace bilateral effusions Cirrhotic appearing liver. Heterogeneous mass is present in the right hepatic lobe anteriorly at 5.2 x 3.3 cm increased in size since the previous exam. A new 2.5 cm nodule present in the right hepatic lobe medial to the larger lesion and could be a direct extension of that lesion. There is an isodense lesion in the hepatic dome at 8 mm only seen on the 5 minute delayed study. There are at least 2 isodensity is in the right hepatic lobe inferiorly one measuring 7 mm not significant changed and another measuring 4 mm and may be present on the previous study is less apparent due to the slice orientation. There is a 5 mm nodule in the right hepatic lobe inferiorly not readily apparent on the previous exam. Splenomegaly. Splenic vein and portal vein are enlarged with portal hypertension. There is a small amount of perihepatic fluid. The adrenal glands are unremarkable. No obvious pancreatic mass. Periportal adenopathy noted. There are bilateral renal cysts. There is an indeterminant nodule within the right kidney laterally at 2.7 cm slightly increased in size and may be better evaluate with ultrasound. No hydronephrosis. No evidence of appendicitis, intestinal obstruction, or free air. There is mild amount retained colonic feces. Small lymph nodes are present in the inguinal region. Small amount fluid is present in the pelvis. There is some mild mesenteric edema which could be due to the portal hypertension No acute bony findings. IMPRESSION: 1. Hepatic mass in the right hepatic lobe is slightly increased in size suspicious for neoplasm and could be either primary or metastatic. A new nodular lesion is present medial to the larger liver lesion and may be due to extension of that lesion or metastatic focus. Multifocal hepatocellular carcinoma is also a consideration There are a few other smaller nodules in the liver some of which are stable and some which are new possibly due to metastatic foci or new cysts. Mildly prominent periportal lymph nodes are once again noted. 2. Cirrhosis with portal hypertension and splenomegaly is enlarged splenic and portal vein. 3. Indeterminate right renal nodule slightly increased in size and may be better evaluate with ultrasound 4. Constipation Dictated By: Prosper Hunter MD 11/01/18 0741 Endoscopy results: Findings: The scope was passed directly into the upper esophagus and advanced to the third portion of the duodenum. There were 2 angiodysplasia/AVMs in the first portion of the duodenum with some active heme. These were cauterized using APC ablation. The scope was withdrawn through a normal duodenal bulb and pylorus into the stomach. There was chronic gastritis with some chronic portal gastropathy within the body and fundus of the stomach. 2 biopsies were taken fr om the lesser curvature and antrum. Upon retroflexion there was no hiatal hernia and no gastric fundic varices. The scope was withdrawn into the esophagus. There were grade 2-3 esophageal varices. No stigmata were identified but based on the patient's melanotic stools, 5 bands were placed on these varices with excellent ligation effect. Impression: 1. Grade 2-3 esophageal varices without stigmata status post band ligation x5 2. Chronic gastritis and some chronic portal gastropathy 3. Duodenal AVM/angiodysplasia status post APC ablation General Adult HPI - General Chief complaint: Abdominal Pain Stated complaint: abd pain Time Seen by Provider: 12/05/18 16:38 Mode of Arrival: EMS Limitations: No Limitations Description of Symptoms (Recalled from ER Triage Doc. by RN): to ed per squad with c/o llq abd pain and "black" stool. pt with hx of liver ca taking po chemo. pt c/o nausea denies fever, chills, vomiting. - History of Present Illness HPI narrative: Brought in by ambulance. States he has had watery diarrhea and intermittent left lower quadrant and suprapubic abdominal pain for 25 days. He was admitted here to the hospital and had endoscopy performed, had banding of varices.. He says that today his diarrhea "went black" broke loose". No vomiting or hematemesis. He does have nausea. No fever. He is not on iron or Pepto- Bismol. He has liver cancer, treated with oral chemotherapy. He has cirrhosis. - Related Data Home Medications Medication Instructions Recorded Confirmed Trazodone HCl 50 mg PO HS 05/16/18 10/31/18 Bisoprolol Fumarate [Zebeta 5mg 5 mg PO DAILY 10/31/18 10/31/18 tablet] Lenvatinib Mesylate [Lenvima] 8 mg PO HS 10/31/18 10/31/18 Prochlorperazine Maleate 10 mg PO Q6HP PRN 10/31/18 11/01/18 [Compazine] Sucralfate [Sucralfate 1gm 1 mg PO ACHS 10/31/18 10/31/18 Tab] Albuterol Sulfate [Albuterol HFA 1 puff IH BIDP PRN 11/01/18 11/01/18 Inhaler] Doxepin HCl 150 mg PO HS 11/01/18 11/01/18 Lisinopril [Lisinopril 5mg 5 mg PO DAILY 11/01/18 11/01/18 Tablet] Omeprazole [Omeprazole 20mg Tab] 20 mg PO DAILY 11/01/18 11/01/18 Allergies Allergy/AdvReac Type Severity Reaction Status Date / Time acetaminophen [From Percocet] Allergy Mild Verified 05/25/18 10:50 haloperidol [From Haldol] Allergy Mild Verified 05/25/18 10:50 oxycodone [From Percocet] Allergy Mild Verified 05/25/18 10:50 risperidone [From Risperdal] Allergy Mild Verified 05/25/18 10:50 [facility] History - Hepatitis A Screen Drug use history?: No High risk sexual behaviors?: No History of sexually transmitted infection?: No Currently employed?: No Childcare worker?: No Do you have indoor plumbing?: Yes Do you have electricity?: Yes Attestation statement:: This patient has been screened for Hepatitis A risk factors. Medical History: Reports:: Chronic Obstructive Pulmonary Disease (COPD), Depression, Hypertension Denies:: Diabetes Mellitus Type 1, Diabetes Mellitus Type 2, Seizures Other Medical History: Reports: Anemia, Liver Disease (Liver Mass, Liver CA, chemotherapy) Other Surgeries: Yes: Cholecystectomy, EGD Amputation: No Fractures: No - Social History Smoking Status: Former smoker # Packs/Day (cigarettes): 1 Alcohol Intake: never Substance Use Type: denies use Occupational Status: disabled Housing: detention Household Members: other - Psychiatric History Pschychiatric History:: Reports:: Depression Family Hx:: No significant family history ROS Obtained: Yes All systems reviewed & no additional complaints - Constitutional Constitutional: Denies fever(s) - Cardiovascular Cardiovascular: Denies chest pain - Respiratory Respiratory: No dyspnea - Gastrointestinal Gastrointestingal: Reports: abdominal pain, change in stool character (black watery diarrhea today), diarrhea Physical Exam - General General appearance: alert, in no apparent distress - Head Head exam: atraumatic, normocephalic - Eye Eye exam: Present: normal appearance, EOMI - ENT ENT exam: Present: mucous membranes moist - Neck Neck exam: Present: normal inspection, trachea midline - Chest Chest inspection: Present: normal inspection, symmetric chest wall rise - Respiratory Respiratory exam: Present: normal lung sounds bilaterally. Absent: respiratory distress - Cardiovascular Cardiovascular exam: Present: regular rate, normal rhythm, normal heart sounds - Abdominal Exam Abdominal exam: Present: soft, tenderness, normal bowel sounds. Absent: distention, guarding, rebound, rigidity Abdominal tenderness: Present: LLQ - Rectal Exam Rectal exam: Present: normal inspection, normal rectal tone. Absent: black stool, bloody stool, fecal impaction, mass - Extremities Exam Extremities exam: Present: normal inspection - Neurological Exam Neurological exam: Present: alert, oriented X3 - Psychiatric Psychiatric exam: Present: normal affect, normal mood - Skin Skin exam: Present: warm, dry
[2018-12-05 17:05] LABS: Basophils % 0.6 % (0.1-2.0); Eosinophils # 0.1 K/mm3 (0.0-0.4); Eosinophils % 2.1 % (0.1-12.0); Hemoglobin 9.4 g/dL (14.1-18.0); Lymphocytes % 24.8 % (10-50); Mean Corpuscular HGB Conc 31.3 g/dL (31.8-35.4); Mean Corpuscular Volume 83.1 fl (80-94); Mean Platelet Volume 9.2 fl (7.4-10.4); Monocytes # 0.4 K/mm3 (0.1-1.0); Neutrophils # 2.6 K/mm3 (1.8-7.8); Neutrophils % 62.5 % (37.0-80.0); Platelet Count 96 K/mm3 (142-424); Red Cell Distribution Width 17.3 % (11.5-17.5); White Blood Count 4.1 K/mm3 (4.8-10.8)
[2018-12-05 17:06] LABS: Hematocrit 29.9 % (42.0-52.0)
[2018-12-05 17:12] LABS: INR 1.26 (0.9-1.1)
[2018-12-05 17:19] LABS: Albumin Level 2.6 gm/dL (3.4-5.0); Albumin/Globulin Ratio 0.6 (1.1-1.8); Bilirubin,Total 0.8 mg/dL (0.2-1.0); Calcium 8.6 mg/dL (8.5-10.1); Globulin 4.6 gm/dl (1.3-3.2); Total Protein,Serum 7.2 gm/dL (6.4-8.2)
[2018-12-05 17:26] LABS: Microscopic, Urine URINE MICROSCOPIC (MICROSCOPIC)
[2018-12-05 17:28] LABS: Appearance,Urine CLEAR (Clear); Bilirubin,Urine Negative (Negative); Blood, Urine 3+ (Negative); Color,Urine YELLOW (Yellow); Glucose,Urine (UA) Negative (Negative); Ketones,Urine Negative (Negative); Leukocyte Esterase,Urine Negative (Negative); PH,Urine 6.5 (5.0-8.5); Protein,Urine 1+ (Negative); Urobilinogen,Urine 0.2 EU/dl (0.2)
[2018-12-05 17:36] LABS: Amorphous Sediment,Urine Trace /lpf; RBC,Urine 20-50 #/hpf (0-3)
--- NOTE | 2018-12-05 20:04 | History & Physical Report ---
*Admission Date: 12/05/18 *Chief complaint: dark stools *History of present illness: this wm from [facility] has hx of cancer and has black stool with hx of blood loss anemia -o ed per squad with c/o llq abd pain and "black" stool. pt with hx of liver ca taking po chemo. pt c/o nausea denies fever, chills, vomiting. Brought in by ambulance. States he has had watery diarrhea and intermittent left lower quadrant and suprapubic abdominal pain for 25 days. He was admitted here to the hospital and had endoscopy performed, had banding of varices.. He says that today his diarrhea "went black" broke loose". No vomiting or hematemesis. He does have nausea. No fever. He is not on iron or Pepto- Bismol. He has liver cancer, treated with oral chemotherapy. He has cirrhosis H History I have reviewed the patient's past medical history: Yes Medical History: Reports:: Chronic Obstructive Pulmonary Disease (COPD), Depression, Hypertension Denies:: Diabetes Mellitus Type 1, Diabetes Mellitus Type 2, Seizures *Have you ever received a pneumonia vaccine?: No *Have you received a flu vaccine this season?: No Other Medical History: Reports: Anemia, Liver Disease (Liver Mass, Liver CA, chemotherapy) Other Surgeries: Yes: Cholecystectomy, EGD Amputation: No Fractures: No - *Social History Smoking Status: Former smoker # Packs/Day (cigarettes): 1 Alcohol Intake: never Substance Use Type: denies use *Occupational Status:: disabled Housing: [facility] Household Members: other *Travel in the last 8 weeks: None - Psychiatric History Pschychiatric History:: Reports:: Depression Family Hx:: No significant family history Review of Systems - Review of Systems Review of systems:: pertinent systems reviewed and negative unless documented below - Constitutional Denies fever(s), Denies headache(s) - Eyes Denies dry eyes - ENT Denies dizziness - *Cardiovascular Denies chest pain - *Respiratory Denies cough - *Gastrointestinal Reports abdominal pain, Reports black, tarry stools - *Genitourinary Denies blood in urine - *Musculoskeletal Denies joint pain - Integumentary/Breasts Denies rash - *Neurologic Denies seizure-like activity - Psychiatric Denies anxiety Meds Home Medications Medication Instructions Recorded Confirmed Type Trazodone HCl 50 mg PO HS 05/16/18 12/05/18 History Bisoprolol Fumarate [Zebeta 5mg 5 mg PO DAILY 10/31/18 12/05/18 History tablet] Lenvatinib Mesylate [Lenvima] 8 mg PO HS 10/31/18 12/05/18 History Prochlorperazine Maleate 10 mg PO Q6HP PRN 10/31/18 12/05/18 History [Compazine] Sucralfate [Sucralfate 1gm 1 mg PO ACHS 10/31/18 12/05/18 History Tab] Albuterol Sulfate [Albuterol HFA 1 puff IH BIDP PRN 11/01/18 12/05/18 History Inhaler] Doxepin HCl 150 mg PO HS 11/01/18 12/05/18 History Lisinopril [Lisinopril 5mg 5 mg PO DAILY 11/01/18 12/05/18 History Tablet] Omeprazole [Omeprazole 20mg Tab] 20 mg PO DAILY 11/01/18 12/05/18 History Loperamide HCl [Loperamide] 2 mg PO Q3HP PRN 12/06/18 12/06/18 History Ondansetron HCl [Ondansetron 8mg 8 mg PO Q8HP PRN 12/06/18 12/06/18 History Tablet] Allergies Allergy/AdvReac Type Severity Reaction Status Date / Time acetaminophen [From Percocet] Allergy Mild Verified 05/25/18 10:50 haloperidol [From Haldol] Allergy Mild Verified 05/25/18 10:50 oxycodone [From Percocet] Allergy Mild Verified 05/25/18 10:50 risperidone [From Risperdal] Allergy Mild Verified 05/25/18 10:50 Exam Vital signs and Labs for Last 24 Hours: Temp Pulse Resp BP Pulse Ox 99.2 F 63 18 120/84 99 12/05/18 15:50 12/05/18 18:00 12/05/18 15:50 12/05/18 18:00 12/05/18 18:00 Laboratory Results - last 24 hr 12/05/18 15:48: WBC 4.1 L, RBC 3.60 L, Hgb 9.4 L, Hct 29.9 L, MCV 83.1, MCH 26.1 L, MCHC 31.3 L, RDW 17.3, Plt Count 96 L, MPV 9.2, Neut % (Auto) 62.5, Lymph % (Auto) 24.8, [place] % (Auto) 10.0 H, Eos % (Auto) 2.1, Baso % (Auto) 0.6, Neut # ( Auto) 2.6, Lymph # (Auto) 1.0, [place] # (Auto) 0.4, Eos # (Auto) 0.1, Baso # (Auto) 0.0 12/05/18 15:48: Sodium 134 L, Potassium 4.0, Chloride 101, Carbon Dioxide 23, Anion Gap 14.0, BUN 17, Creatinine 1.04, Estimated Creat Clear 127, Estimated GFR 74, Est GFR ( Amer) 90, Glucose 83, Calcium 8.6, Total Bilirubin 0.8, AST 141 H, ALT 65, Alkaline Phosphatase 119 H, Total Protein 7.2, Albumin 2.6 L, Globulin 4.6 H, Albumin/Globulin Ratio 0.6 L 12/05/18 15:48: PT 13.0 H, INR 1.26 H 12/05/18 16:45: Stool Occult Blood Positive A 12/05/18 17:11: Urine Color Yellow, Urine Appearance Clear, Urine pH 6.5, Ur Specific [place] 1.010, Urine Protein 1+, Urine Glucose (UA) Negative, Urine Ketones Negative, Urine Blood 3+, Urine Nitrate Negative, Urine Bilirubin Negative, Urine Urobilinogen 0.2, Ur Leukocyte Esterase Negative, Urine RBC 20- 50, Urine WBC 3-5, Amorphous Sediment Trace I & O for Last 24 hours: Intake & Output 12/03/18 12/04/18 12/05/18 12/06/18 11:59 11:59 11:59 11:59 Weight 247 lb - Constitutional no acute distress, obese - *Routine HEENT Exam Head: Present: normocephalic Eye: Present: EOMI, PERRL. Absent: conjunctival icterus ENT: Present: mucous membranes dry - *Routine Neck Exam Present: supple - *Routine Respiratory Exam Present: CTA bilaterally - *Routine Cardiovascular Exam Present: RRR, murmur - *Routine Abdominal Exam Present: soft - *Routine Extremities Exam Present: full ROM - Routine Back/Spine/Pelvis Exam Back/Spine: Present: full ROM - *Routine Skin Exam Present: intact - *Routine Neurological Exam Present: alert, CN II-XII intact - Routine Psychiatric Exam Present: normal affect Assessment and Plan (1) Upper gastrointestinal bleed Current visit: Yes Status: Acute Category: Medical Code(s): K92.2 - Gastrointestinal hemorrhage, unspecified (2) Bipolar 1 disorder Current visit: No Status: Acute Category: Medical Code(s): F31.9 - Bipolar disorder, unspecified (3) Anemia Current visit: No Status: Acute Qualifiers: Anemia type: unspecified type Qualified Code(s): D64.9 - Anemia, unspecifi ed Category: Medical Code(s): D64.9 - Anemia, unspecified (4) Acute blood loss anemia Current visit: Yes Status: Acute Category: Medical Code(s): D62 - Acute posthemorrhagic anemia (5) Pancytopenia Current visit: Yes Status: Acute Category: Medical Code(s): D61.818 - Other pancytopenia (6) Hepatic cancer Current visit: Yes Status: Acute Category: Medical Code(s): C22.9 - [place] neoplasm of liver, not specified as primary or secondary
[2018-12-06 07:28] LABS: Eosinophils % 2.7 % (0.1-12.0); Lymphocytes # 0.4 K/mm3 (0.7-4.5); Monocytes # 0.1 K/mm3 (0.1-1.0); Neutrophils # 0.9 K/mm3 (1.8-7.8); Red Blood Count 2.73 M/mm3 (4.60-6.20); White Blood Count 1.5 K/mm3 (4.8-10.8)
[2018-12-06 07:48] LABS: Basophils % 0.8 % (0.1-2.0); Lymphocytes % 26.3 % (10-50); Mean Corpuscular HGB Conc 30.2 g/dL (31.8-35.4); Mean Corpuscular Volume 84.4 fl (80-94); Mean Platelet Volume 9.7 fl (7.4-10.4); Monocytes % 6.9 % (1.7-9.3); Neutrophils % 63.3 % (37.0-80.0); Platelet Count 64 K/mm3 (142-424); Red Cell Distribution Width 17.3 % (11.5-17.5)
--- NOTE | 2018-12-06 09:37 | Pharmacy Consult Notes ---
[facility] Pharmacy VTE Monitoring - Patient Demographics Admission date: 12/05/18 Report Date: 12/06/18 Time: 09:37 Allergies/Adverse Reactions: Patient Allergies acetaminophen [From Percocet] Allergy (Mild, Verified 05/25/18 10:50) haloperidol [From Haldol] Allergy (Mild, Verified 05/25/18 10:50) oxycodone [From Percocet] Allergy (Mild, Verified 05/25/18 10:50) risperidone [From Risperdal] Allergy (Mild, Verified 05/25/18 10:50) Height: 1.85 m Weight: 112.491 kg Patient Problems: Current Active Problems Upper gastrointestinal bleed (Acute) Acute blood loss anemia (Acute) Pancytopenia (Acute) Hepatic cancer (Acute) - VTE Risk Labs: VTE Related Lab Results Hgb 7.0 g/dL (14.1-18.0) L* D 12/06/18 06:40 Hct 23.1 % (42.0-52.0) L* 12/06/18 06:40 Plt Count 64 K/mm3 (142-424) L D 12/06/18 06:40 PT 13.0 seconds (9.4-11.8) H 12/05/18 15:48 INR 1.26 (0.9-1.1) H 12/05/18 15:48 BUN 17 mg/dL (7-18) 12/05/18 15:48 Creatinine 1.04 mg/dL (0.70-1.30) 12/05/18 15:48 Estimated Creat Clear 127 mL/min (50-200) 12/05/18 15:48 Was VTE Risk Assessment Performed: Yes VTE Score: 6 VTE Risk Level: Moderate Risk - Prophylaxis VTE Prophylaxis Ordered?: Yes Types of VTE Prophylaxis: TEDS Knee High Location of Applied Device: Bilateral Lower Extremeties
--- NOTE | 2018-12-06 10:26 | Progress Note ---
Internal Medicine - PN: Subj *Date: 12/07/18 *Time: 06:30 Interval history: doing better but has dec h/h and also pancytopenia from chemo - will transfuse Exam Vital signs and Labs for Last 24 Hours: Temp Pulse Resp BP Pulse Ox 97.8 F 93 H 20 103/64 L 95 12/06/18 08:00 12/06/18 08:00 12/06/18 08:00 12/06/18 08:00 12/06/18 08:00 Laboratory Results - last 24 hr 12/05/18 15:48: WBC 4.1 L, RBC 3.60 L, Hgb 9.4 L, Hct 29.9 L, MCV 83.1, MCH 26.1 L, MCHC 31.3 L, RDW 17.3, Plt Count 96 L, MPV 9.2, Neut % (Auto) 62.5, Lymph % (Auto) 24.8, [place] % (Auto) 10.0 H, Eos % (Auto) 2.1, Baso % (Auto) 0.6, Neut # (Auto) 2.6, Lymph # (Auto) 1.0, [place] # (Auto) 0.4, Eos # (Auto) 0.1, Baso # (Auto) 0.0 12/05/18 15:48: Sodium 134 L, Potassium 4.0, Chloride 101, Carbon Dioxide 23, Anion Gap 14.0, BUN 17, Creatinine 1.04, Estimated Creat Clear 127, Estimated GFR 74, Est GFR ( Amer) 90, Glucose 83, Calcium 8.6, Total Bilirubin 0.8, AST 141 H, ALT 65, Alkaline Phosphatase 119 H, Total Protein 7.2, Albumin 2.6 L, Globulin 4.6 H, Albumin/Globulin Ratio 0.6 L 12/05/18 15:48: PT 13.0 H, INR 1.26 H 12/05/18 16:45: Stool Occult Blood Positive A 12/05/18 17:11: Urine Color Yellow, Urine Appearance Clear, Urine pH 6.5, Ur Specific [place] 1.010, Urine Protein 1+, Urine Glucose (UA) Negative, Urine Ketones Negative, Urine Blood 3+, Urine Nitrate Negative, Urine Bilirubin Negative, Urine Urobilinogen 0.2, Ur Leukocyte Esterase Negative, Urine RBC 20- 50, Urine WBC 3-5, Amorphous Sediment Trace 12/05/18 21:20: Stl Aeromonas (PCR) Not detected, Stl C. cayetanensis PCR Not detected, Stool Rotavirus (PCR) Not detected, Stl Adenov F 40/41 PCR Not detected, Stool Astrovirus (PCR) Not detected, Stool Campylobacter PCR Not detected, Stl C.difficile Tox PCR Not detected, Stool Cryptosporidium PCR Not detected, Stl E.coli Shiga Tox PCR Not detected, Stool E coli O157 PCR Not detected, Stl Enterotoxigenic E PCR Not detected, Stool EPEC (PCR) Not detected, Stool EAEC (PCR) Not detected, Stl E. histolytica PCR Not detected, Stool Giardi a Lamblia PCR Not detected, Stool Salmonella PCR Not detected, Stool Sapovirus (PCR) Not detected, Stl P. shigelloides PCR Not detected, Stl Shigella/EIEC PCR Not detected, St Y.enterocolitica PCR Not detected, Stool Vibrio (PCR) Not detected, Stl Vibrio cholerae PCR Not detected, Stl Norovirus GI/GII PCR Not detected 12/06/18 06:40: WBC 1.5 L* D, RBC 2.73 L, Hgb 7.0 L* D, Hct 23.1 L*, MCV 84.4, MCH 25.5 L, MCHC 30.2 L, RDW 17.3, Plt Count 64 L D, MPV 9.7, Neut % (Auto) 63.3, Lymph % (Auto) 26.3, [place] % (Auto) 6.9, Eos % (Auto) 2.7, Baso % (Auto) 0.8, Neut # (Auto) 0.9 L*, Lymph # (Auto) 0.4 L, [place] # (Auto) 0.1, Eos # (Auto) 0.0, Baso # (Auto) 0.0 12/06/18 08:45: Crossmatch (AHG) See Detail I & O for Last 24 hours: Intake & Output 12/03/18 12/04/18 12/05/18 12/06/18 11:59 11:59 11:59 11:59 Intake Total 2550 / 2550 Balance 2550 / 2550 Weight 248 lb - Constitutional no acute distress, obese - *Routine HEENT Exam Head: Present: normocephalic Eye: Present: EOMI, PERRL ENT: Present: mucous membranes dry - *Routine Neck Exam Present: supple - *Routine Respiratory Exam Present: CTA bilaterally - *Routine Cardiovascular Exam Present: RRR, murmur - *Routine Abdominal Exam Present: soft - *Routine Extremities Exam Present: full ROM - *Routine Skin Exam Present: intact - *Routine Neurological Exam Present: alert, CN II-XII intact - Routine Psychiatric Exam Present: normal affect Assessment and Plan (1) Upper gastrointestinal bleed Current visit: Yes Status: Acute Category: Medical Code(s): K92.2 - Gastrointestinal hemorrhage, unspecified (2) Bipolar 1 disorder Current visit: No Status: Acute Category: Medical Code(s): F31.9 - Bipolar disorder, unspecified (3) Anemia Current visit: No Status: Acute Qualifiers: Anemia type: unspecified type Qualified Code(s): D64.9 - Anemia, unspecified Category: Medical Code(s): D64.9 - Anemia, unspecified (4) Acute blood loss anemia Current visit: Yes Status: Acute Category: Medical Code(s): D62 - Acute posthemorrhagic anemia (5) Pancytopenia Current visit: Yes Status: Acute Category: Medical Code(s): D61.818 - Other pancytopenia (6) Hepatic cancer Current visit: Yes Status: Acute Category: Medical Code(s): C22.9 - Malignant neoplasm of liver, not specified as primary or secondary (7) Obesity (BMI 30.0-34.9) Current visit: No Status: Acute Category: Medical Code(s): E66.9 - Obesity, unspecified
[2018-12-06 18:23] LABS: Hematocrit 30.1 % (42.0-52.0)
[2018-12-06 18:30] LABS: Hemoglobin 9.3 g/dL (14.1-18.0)
[2018-12-07 07:54] VITALS: BP 109/74
[2018-12-07 08:06] LABS: Anion Gap 9.3 mEq/L (5-15); Calcium 8.1 mg/dL (8.5-10.1)
[2018-12-07 08:47] LABS: Basophils % 0.4 % (0.1-2.0); Eosinophils # 0.1 K/mm3 (0.0-0.4); Eosinophils % 2.6 % (0.1-12.0); Hematocrit 30.7 % (42.0-52.0); Hemoglobin 9.6 g/dL (14.1-18.0); Lymphocytes # 0.5 K/mm3 (0.7-4.5); Mean Corpuscular HGB Conc 31.1 g/dL (31.8-35.4); Mean Corpuscular Volume 84.8 fl (80-94); Mean Platelet Volume 9.2 fl (7.4-10.4); Monocytes # 0.2 K/mm3 (0.1-1.0); Monocytes % 6.8 % (1.7-9.3); Neutrophils # 1.5 K/mm3 (1.8-7.8); Neutrophils % 68.2 % (37.0-80.0); Platelet Count 77 K/mm3 (142-424); Red Blood Count 3.62 M/mm3 (4.60-6.20); Red Cell Distribution Width 17.5 % (11.5-17.5); White Blood Count 2.2 K/mm3 (4.8-10.8)
[2018-12-07 10:11] LABS: Hematocrit 23.1 % (42.0-52.0)
--- NOTE | 2018-12-07 13:04 | Discharge Summary ---
General - General Admission date:: 12/05/18 Discharge date: 12/07/18 HPI HPI: this wm from [facility] has hx of cancer and has black stool with hx of blood loss anemia -o ed [facility] with c/o llq abd pain and "black" stool. pt with hx of liver ca taking po chemo. pt c/o nausea denies fever, chills, vomiting. Brought in by ambulance. States he has had watery diarrhea and intermittent left lower quadrant and suprapubic abdominal pain for 25 days. He was admitted here to the hospital and had endoscopy performed, had banding of varices.. He says that today his diarrhea "went black" broke loose". No vomiting or hemat emesis. He does have nausea. No fever. He is not on iron or Pepto-Bismol. He has liver cancer, treated with oral chemotherapy. He has cirrhosis Hospital Course Hospital Course: Patient admitted for anemia history of GI bleed. vital signs monitoring and lab monitoring. Monitor stool for blood loss. Hemoccult positive for blood. On admission 91 WBC4.1, RBC3.60, Hgb9.4, HCT 29.9. 92 WBC 1.5 RBC 2.73, Hgb 7 HCT 23.1. After 2 units of packed red cells Hgb 9.3 and HCT 30.1. 93 WBC 2.2, RBC 3.62, Hgb 9.6, HCT 30.7. Today patient states no abdominal pain in his stool has turned back brown. Patient will be discharged back to [facility] today and continue following oncology for chemotherapy and treatment for liver cancer. Objective Vital signs: Temp Pulse Resp BP Pulse Ox 97.9 F 92 H 17 109/74 L 96 12/07/18 07:53 12/07/18 07:53 12/07/18 07:53 12/07/18 07:53 12/07/18 07:53 no acute distress - *Routine HEENT Exam Head: Present: normocephalic Eye: Present: PERRL ENT: Present: mucous membranes moist - *Routine Neck Exam Present: full ROM - *Routine Respiratory Exam Present: CTA bilaterally - *Routine Cardiovascular Exam Present: RRR - *Routine Abdominal Exam Present: soft, normoactive bowel sounds. Absent: tenderness, distended, firm - *Routine Extremities Exam Present: full ROM - *Routine Skin Exam Present: intact - *Routine Neurological Exam Present: alert, oriented X3 - Routine Psychiatric Exam Present: normal affect Results Labs on day of discharge: Labs from last 24 hours 12/07/18 12/07/18 12/06/18 07:14 07:14 18:20 WBC 2.2 L D RBC 3.62 L D Hgb 9.6 L 9.3 L D Hct 30.7 L 30.1 L MCV 84.8 MCH 26.4 L MCHC 31.1 L RDW 17.5 Plt Count 77 L MPV 9.2 Neut % (Auto) 68.2 Lymph % (Auto) 22.0 [place] % (Auto) 6.8 Eos % (Auto) 2.6 Baso % (Auto) 0.4 Neut # (Auto) 1.5 L Lymph # (Auto) 0.5 L [place] # (Auto) 0.2 Eos # (Auto) 0.1 Baso # (Auto) 0.0 Sodium 139 Potassium 4.3 Chloride 107 Carbon Dioxide 27 Anion Gap 9.3 BUN 13 Creatinine 0.94 Estimated Creat Clear 143 Estimated GFR 83 Est GFR ( Amer) 101 Glucose 95 Calcium 8.1 L Blood Type Antibody Screen Crossmatch (AHG) 12/06/18 12/06/18 08:45 06:40 WBC RBC Hgb Hct 23.1 L* MCV MCH MCHC RDW Plt Count MPV Neut % (Auto) Lymph % (Auto) [place] % (Auto) Eos % (Auto) Baso % (Auto) Neut # (Auto) Lymph # (Auto) [place] # (Auto) Eos # (Auto) Baso # (Auto) Sodium Potassium Chloride Carbon Dioxide Anion Gap BUN Creatinine Estimated Creat Clear Estimated GFR Est GFR ( Amer) Glucose Calcium Blood Type A Positive Antibody Screen Negative Crossmatch (AH) See Detail - Additional Comments Rounded with steve all orders per arlene DS: Diagnosis - Discharge Diagnosis (1) Upper gastrointestinal bleed Status: Acute (2) Bipolar 1 disorder Status: Acute (3) Anemia Status: Acute (4) Acute blood loss anemia Status: Acute (5) Pancytopenia Status: Acute (6) Hepatic cancer Status: Acute (7) Obesity (BMI 30.0-34.9) Status: Acute Discharge Plan - Patient Discharge Instructions ACTIVITY: Continue current activity DIET: continue same diet Patient Instructions: DI for Gastrointestinal Bleeding, DI for Pancytopenia - Follow up Plan Follow up with: Real Linda MD [Primary Care Provider] - 12/10/18 Disposition: Home, Self-Correction Medications: Home Medications Medication Instructions Recorded Confirmed Type Trazodone HCl 50 mg PO HS 05/16/18 12/05/18 History Bisoprolol Fumarate [Zebeta 5mg 5 mg PO DAILY 10/31/18 12/05/18 History tablet] Lenvatinib Mesylate [Lenvima] 8 mg PO DAILY 10/31/18 12/06/18 History Prochlorperazine Maleate 10 mg PO Q6HP PRN 10/31/18 12/05/18 History [Compazine] Sucralfate [Sucralfate 1gm 1 mg PO ACHS 10/31/18 12/05/18 History Tab] Albuterol Sulfate [Albuterol HFA 2 puff IH BID 11/01/18 12/06/18 History Inhaler] Doxepin HCl 150 mg PO HS 11/01/18 12/05/18 History Lisinopril [Lisinopril 5mg 5 mg PO DAILY 11/01/18 12/05/18 History Tablet] Omeprazole [Omeprazole 20mg Tab] 20 mg PO DAILY 11/01/18 12/05/18 History Loperamide HCl [Loperamide] 2 mg PO Q3HP PRN 12/06/18 12/06/18 History Ondansetron HCl [Ondansetron 8mg 8 mg PO Q8HP PRN 12/06/18 12/06/18 History Tablet] Prescriptions/Medication Reconciliation: Continued Trazodone HCl 50 mg PO HS Sucralfate [Sucralfate 1gm Tab] 1 mg PO ACHS Prochlorperazine Maleate [Compazine] 10 mg PO Q6HP PRN PRN Reason: Vomiting Lenvatinib Mesylate [Lenvima] 8 mg PO DAILY Lisinopril [Lisinopril 5mg Tablet] 5 mg PO DAILY Omeprazole [Omeprazole 20mg Tab] 20 mg PO DAILY Bisoprolol Fumarate [Zebeta 5mg tablet] 5 mg PO DAILY Albuterol Sulfate [Albuterol HFA Inhaler] 2 puff IH BID Doxepin HCl 150 mg PO HS Loperamide HCl [Loperamide] 2 mg PO Q3HP PRN PRN Reason: Diarrhea Ondansetron HCl [Ondansetron 8mg Tablet] 8 mg PO Q8HP PRN PRN Reason: Nausea And Vomiting - Problem Reconciliation Problems Reviewed?: Yes
== END 2018-12-07 14:55 | disposition home or self-care (01) ==
LOC: ER 15:49 → 2ND 15:49 → OBSVTOIN 20:39 → INTOOBSV 20:39 → 2ND 20:40
PROVIDERS: ADMIT Family Medicine; ATTEND Emergency Medicine
DX: C22.9 Malignant neoplasm of liver, not specified as primary or secondary; Z88.8 Allergy status to other drugs, medicaments and biological substances; E66.9 Obesity, unspecified; Z88.6 Allergy status to analgesic agent; K92.2 Gastrointestinal hemorrhage, unspecified; D61.818 Other pancytopenia; F31.9 Bipolar disorder, unspecified; D62 Acute posthemorrhagic anemia
CPT/HCPCS: 36415; 80048; 80053; 81001; 82272; 85014; 85018; 85025; 85610; 86850; 87506; 94640; 96365; 96375; 99284; G0328; G0378; P9016

== ENCOUNTER 2019-03-31 09:57 | Inpatient (IN) ==
--- NOTE | 2019-03-31 11:46 | Pharmacy Consult Notes ---
[facility] Pharmacy VTE Monitoring - Patient Demographics Admission date: 03/31/19 Report Date: 03/31/19 Time: 11:46 Allergies/Adverse Reactions: Patient Allergies acetaminophen [From Percocet] Allergy (Mild, Verified 05/25/18 10:50) haloperidol [From Haldol] Allergy (Mild, Verified 05/25/18 10:50) oxycodone [From Percocet] Allergy (Mild, Verified 05/25/18 10:50) risperidone [From Risperdal] Allergy (Mild, Verified 05/25/18 10:50) Height: 1.85 m Weight: 106.226 kg - VTE Risk Was VTE Risk Assessment Performed: Yes VTE Score: 4 VTE Risk Level: Low Risk - Prophylaxis VTE Prophylaxis Ordered?: Yes Types of VTE Prophylaxis: TEDS Knee High Location of Applied Device: Bilateral Lower Extremeties - VTE Diagnosis Confirmed Treatment or plan recommended: Continue Current Treatment
[2019-03-31 12:33] LABS: Basophils % 0.5 % (0.1-2.0); Eosinophils % 0.2 % (0.1-12.0); Lymphocytes # 0.6 K/mm3 (0.7-4.5); Lymphocytes % 9.1 % (10-50); Mean Corpuscular HGB Conc 30.7 g/dL (31.8-35.4); Mean Corpuscular Volume 84.8 fl (80-94); Mean Platelet Volume 9.1 fl (7.4-10.4); Monocytes # 0.4 K/mm3 (0.1-1.0); Monocytes % 5.1 % (1.7-9.3); Neutrophils % 85.2 % (37.0-80.0); Platelet Count 95 K/mm3 (142-424); Red Cell Distribution Width 16.8 % (11.5-17.5); White Blood Count 7.1 K/mm3 (4.8-10.8)
[2019-03-31 12:35] LABS: Albumin Level 1.9 gm/dL (3.4-5.0); Albumin/Globulin Ratio 0.5 (1.1-1.8); Anion Gap 12.5 mEq/L (5-15); Bilirubin,Total 0.7 mg/dL (0.2-1.0); Total Protein,Serum 5.9 gm/dL (6.4-8.2)
[2019-03-31 12:44] LABS: Red Blood Count 2.65 M/mm3 (4.60-6.20)
[2019-03-31 12:45] LABS: Hematocrit 22.4 % (42.0-52.0)
--- NOTE | 2019-03-31 12:57 | History & Physical Report ---
*Admission Date: 03/31/19 *Chief complaint: gi bleed *History of present illness: 53-year-old male directly admitted [facility] with a GI bleed. Patient states he was at a [facility] and he was vomiting up blood and was unable to keep anything down. Patient admitted for surgery consult and gastrology consult. Patient has a history of esophageal varices. [facility] History I have reviewed the patient's past medical history: Yes Medical History: Reports:: Cancer (LIVER), Chronic Obstructive Pulmonary Disease (COPD), Depression, Hyperlipidemia, Hypertension Denies:: Diabetes Mellitus Type 1, Diabetes Mellitus Type 2, Internal Pacemaker, Seizures *Have you ever received a pneumonia vaccine?: Yes *Have you received a flu vaccine this season?: Yes Other Medical History: Reports: Anemia, Liver Disease (Liver Mass, Liver CA, chemotherapy) Other Surgeries: Yes: Cholecystectomy, EGD, Other. No: Pacemaker Amputation: No Fractures: No - *Social History Educational Level: Attended Grade School Smoking Status: Former smoker Tobacco Type: cigarettes # Packs/Day (cigarettes): 1 Alcohol Intake: former Alcohol Intake Frequency:: other Substance Use Type: denies use *Occupational Status:: disabled Housing: assisted living facility Household Members: other *Travel in the last 8 weeks: None - Psychiatric History Pschychiatric History:: Reports:: Depression Family Hx:: Unable to obtain Review of Systems - Review of Systems Review of systems:: pertinent systems reviewed and negative unless documented below - Constitutional Denies body ache(s), Denies fatigue - Eyes Denies change in vision - ENT Denies change in voice, Denies nasal congestion - *Cardiovascular Denies chest pain with activity - *Respiratory Denies chest congestion - *Gastrointestinal Reports abdominal pain, Reports vomiting blood, Reports nausea, Reports vomiting - *Genitourinary Denies urinary frequency - *Musculoskeletal Denies body aches - Integumentary/Breasts Denies rash - *Neurologic Denies dizziness - Psychiatric Denies anxiety - Endocrine Denies flushing - Hematologic/Lymphatic Denies enlarged lymph nodes - Allergic/Immunologic Denies lip swelling Meds Home Medications Medication Instructions Recorded Confirmed Type Trazodone HCl 50 mg PO HS 05/16/18 03/31/19 History Prochlorperazine Maleate 10 mg PO Q6HP PRN 10/31/18 03/31/19 History [Compazine] Sucralfate [Sucralfate 1gm 1 mg PO ACHS 10/31/18 03/31/19 History Tab] bisoproloL fumarate [Zebeta 5mg 5 mg PO DAILY 10/31/18 03/31/19 History tablet] Albuterol Sulfate [Albuterol HFA 2 puff IH BID 11/01/18 03/31/19 History Inhaler] lisinopriL [Lisinopril 5mg 5 mg PO DAILY 11/01/18 03/31/19 History Tablet] Ondansetron HCl [Ondansetron 8mg 8 mg PO Q8HP PRN 12/06/18 03/31/19 History Tablet] Doxepin HCl 150 mg PO DAILY 03/31/19 03/31/19 History Allergies Allergy/AdvReac Type Severity Reaction Status Date / Time acetaminophen [From Percocet] Allergy Mild Verified 05/25/18 10:50 haloperidol [From Haldol] Allergy Mild Verified 05/25/18 10:50 oxycodone [From Percocet] Allergy Mild Verified 05/25/18 10:50 risperidone [From Risperdal] Allergy Mild Verified 05/25/18 10:50 Exam Vital signs and Labs for Last 24 Hours: Temp Pulse Resp BP Pulse Ox 98.4 F 93 H 17 108/68 L 99 03/31/19 11:11 03/31/19 11:11 03/31/19 11:11 03/31/19 11:11 03/31/19 11:11 Laboratory Results - last 24 hr 03/31/19 11:55: WBC 7.1, RBC 2.65 L, Hgb 7.0 L*, Hct 22.4 L*, MCV 84.8, MCH 26.0 L, MCHC 30.7 L, RDW 16.8, Plt Count 95 L, MPV 9.1, Neut % (Auto) 85.2 H, Lymph % (Auto) 9.1 L, [place] % (Auto) 5.1, Eos % (Auto) 0.2, Baso % (Auto) 0.5, Neut # (Auto) 6.0, Lymph # (Auto) 0.6 L, [place] # (Auto) 0.4, Eos # (Auto) 0.0, Baso # (Auto) 0.0 03/31/19 11:55: Sodium 139, Potassium 5.5 H D, Chloride 108 H, Carbon Dioxide 24, Anion Gap 12.5, BUN 35 H D, Creatinine 1.11, Estimated Creat Clear 113, Estimated GFR 69, Est GFR ( Amer) 83, Glucose 156 H D, Calcium 8.0 L, Total Bilirubin 0.7, AST 147 H, ALT 77, Alkaline Phosphatase 165 H, Total Protein 5.9 L, Albumin 1.9 L, Globulin 4.0 H, Albumin/Globulin Ratio 0.5 L I & O for Last 24 hours: Intake & Output 03/29/19 03/30/19 03/31/19 04/01/19 11:59 11:59 11:59 11:59 Weight 234 lb 3 oz - Constitutional no acute distress - *Routine HEENT Exam Head: Present: normocephalic Eye: Present: PERRL ENT: Present: mucous membranes moist - *Routine Neck Exam Present: supple. Absent: lymphadenopathy - *Routine Respiratory Exam Present: CTA bilaterally - *Routine Cardiovascular Exam Present: RRR - *Routine Abdominal Exam Present: soft, normoactive bowel sounds, tenderness, obese. Absent: distended, rebound, guarding - *Routine Extremities Exam Absent: cyanosis, clubbing, edema, full ROM - *Routine Skin Exam Present: intact, warm. Absent: rash - *Routine Neurological Exam Present: alert, oriented X3 - Routine Psychiatric Exam Present: normal affect Assessment and Plan (1) Cirrhosis Current visit: Yes Status: Acute Category: Medical Code(s): K74.60 - Unspecified cirrhosis of liver (2) Esophageal varices Current visit: Yes Status: Acute Category: Medical Code(s): I85.00 - Esophageal varices without bleeding (3) Acute blood loss anemia Current visit: No Status: Acute Category: Medical Code(s): D62 - Acute po sthemorrhagic anemia - Assessment and plan all Dx Assessment and Plan for all problems:: rounded with dr jacobs all orders per dr jacobs
--- NOTE | 2019-03-31 13:00 | Consult Report ---
*Admission Date: 03/31/19 *Reason for consult:: Upper gastrointestinal hemorrhage *History of present illness: This is a 53-year-old gentleman seen in consultation from the service of Dr. Linda for evaluation regarding upper gastrointestinal hemorrhage. He developed hematemesis overnight and was evaluated in the emergency department. He was reportedly hemodynamically stable with no sign of ongoing hemorrhage and discharged back to [facility]. He has a known history of esophageal varices and prior hospitalizations for upper gastrointestinal hemorrhage. He also has chronic hepatitis C, cirrhosis, and hepatocellular carcinoma. He is no longer undergoing therapy for his advanced hepatocellular carcinoma and discussions with regard to possible hospice as well but have been entertained. In May of this year he was hospitalized for upper gastrointestinal hemorrhage and found to have distal esophageal varices and gastroduodenitis. No sign of active hemorrhage noted at this time. In October of this year he was reevaluated by gastroenterology and underwent repeat EGD. Please see the following indications and impression/plan forwarded from his procedure note. EGD from 11/01/18 (Dr. Abreu) Indications: Mr. Galdamez is a 53-year-old gentleman with chronic hepatitis C, cirrhosis and hepatocellular carcinoma. The patient did decline treatment. His CAT scan in June 2018 showed a 6.5 cm hepatocellular carcinoma with satellite nodules. His alpha-fetoprotein at that time had risen from 560 to 4284. The patient presents to the hospital with melena yesterday. He had a prior upper endoscopy by Dr. Rancho Ruiz M.D. He does get some painful swallowing with globus sensation, hoarseness, frequent clearance of the throat and some bloating. He reports some epigastric abdominal discomfort and dyspepsia. He does take ibuprofen every 3 or 4 days. He reports no heartburn or reflux. The patient's hemoglobin and hematocrit were 10.8 and 33.0. His alkaline phosphatase, 161, AST 195 and ALT 104 were mildly elevated. Impression: 1. Grade 2-3 esophageal varices without stigmata status post band ligation x5 2. Chronic gastritis and some chronic portal gastropathy 3. Duodenal AVM/angiodysplasia status post APC ablation Plan: I will discussed the findings with patient and family. The patient does have advanced hepatocellular carcinoma. He does have evidence of portal hypertension. He will likely need hospice involvement. Review of Systems - Constitutional Denies fever(s) - Eyes Denies change in vision - ENT Reports difficulty swallowing - *Cardiovascular Denies chest pain - *Respiratory Denies cough - *Gastrointestinal Reports vomiting blood - *Genitourinary Denies painful urination - *Musculoskeletal Denies deformity - Integumentary/Breasts Denies changing lesions - *Neurologic Denies abnormal speech - Psychiatric Denies confusion - Endocrine Reports excessive sweating - Hematologic/Lymphatic Denies easy bruising - Allergic/Immunologic Denies hives [facility] History Medical History: Reports:: Cancer (LIVER), Chronic Obstructive Pulmonary Disease (COPD), Depression, Hyperlipidemia, Hypertension Denies:: Diabetes Mellitus Type 1, Diabetes Mellitus Type 2, Internal Pacemaker, Seizures *Have you ever received a pneumonia vaccine?: Yes *Have you received a flu vaccine this season?: Yes Other Medical History: Reports: Anemia, Liver Disease (Liver Mass, Liver CA, chemotherapy) Other Surgeries: Yes: Cholecystectomy, EGD, Other. No: Pacemaker Amputation: No Fractures: No - *Social History Educational Level: Attended Grade School Smoking Status: Former smoker Tobacco Type: cigarettes # Packs/Day (cigarettes): 1 Alcohol Intake: former Alcohol Intake Frequency:: other Substance Use Type: denies use *Occupational Status:: disabled Housing: assisted living facility Household Members: other *Travel in the last 8 weeks: None - Psychiatric History Pschychiatric History:: Reports:: Depression Family Hx:: Unable to obtain Meds Home Medications Medication Instructions Recorded Confirmed Type Trazodone HCl 50 mg PO HS 05/16/18 03/31/19 History Prochlorperazine Maleate 10 mg PO Q6HP PRN 10/31/18 03/31/19 History [Compazine] Sucralfate [Sucralfate 1gm 1 mg PO ACHS 10/31/18 03/31/19 History Tab] bisoproloL fumarate [Zebeta 5mg 5 mg PO DAILY 10/31/18 03/31/19 History tablet] Albuterol Sulfate [Albuterol HFA 2 puff IH BID 11/01/18 03/31/19 History Inhaler] lisinopriL [Lisinopril 5mg 5 mg PO DAILY 11/01/18 03/31/19 History Tablet] Ondansetron HCl [Ondansetron 8mg 8 mg PO Q8HP PRN 12/06/18 03/31/19 History Tablet] Doxepin HCl 150 mg PO DAILY 03/31/19 03/31/19 History Allergies Allergy/AdvReac Type Severity Reaction Status Date / Time acetaminophen [From Percocet] Allergy Mild Verified 05/25/18 10:50 haloperidol [From Haldol] Allergy Mild Verified 05/25/18 10:50 oxycodone [From Percocet] Allergy Mild Verified 05/25/18 10:50 risperidone [From Risperdal] Allergy Mild Verified 05/25/18 10:50 Exam Vital signs and Labs for Last 24 Hours: Temp Pulse Resp BP Pulse Ox 98.4 F 93 H 17 108/68 L 99 03/31/19 11:11 03/31/19 11:11 03/31/19 11:11 03/31/19 11:11 03/31/19 11:11 Laboratory Results - last 24 hr 03/31/19 11:55: WBC 7.1, RBC 2.65 L, Hgb 7.0 L*, Hct 22.4 L*, MCV 84.8, MCH 26.0 L, MCHC 30.7 L, RDW 16.8, Plt Count 95 L, MPV 9.1, Neut % (Auto) 85.2 H, Lymph % (Auto) 9.1 L, [place] % (Auto) 5.1, Eos % (Auto) 0.2, Baso % (Auto) 0.5, Neut # (Auto) 6.0, Lymph # (Auto) 0.6 L, [place] # (Auto) 0.4, Eos # (Auto) 0.0, Baso # (Auto) 0.0 03/31/19 11:55: Sodium 139, Potassium 5.5 H D, Chloride 108 H, Carbon Dioxide 24, Anion Gap 12.5, BUN 35 H D, Creatinine 1.11, Estimated Creat Clear 113, Estimated GFR 69, Est GFR ( Amer) 83, Glucose 156 H D, Calcium 8.0 L, Total Bilirubin 0.7, AST 147 H, ALT 77, Alkaline Phosphatase 165 H, Total Protein 5.9 L, Albumin 1.9 L, Globulin 4.0 H, Albumin/Globulin Ratio 0.5 L I & O for Last 24 hours: Intake & Output 03/29/19 03/30/19 03/31/1927/19 11:59 11:59 11:59 11:59 Weight 234 lb 3 oz - Constitutional no acute distress - *Routine Respiratory Exam Absent: respiratory distress - *Routine Cardiovascular Exam Present: RRR - *Routine Abdominal Exam Present: soft Results - Labs 03/31/19 11:55 03/31/19 11:55 Laboratory Results - last 24 hr 03/31/19 11:55: WBC 7.1, RBC 2.65 L, Hgb 7.0 L*, Hct 22.4 L*, MCV 84.8, MCH 26.0 L, MCHC 30.7 L, RDW 16.8, Plt Count 95 L, MPV 9.1, Neut % (Auto) 85.2 H, Lymph % (Auto) 9.1 L, [place] % (Auto) 5.1, Eos % (Auto) 0.2, Baso % (Auto) 0.5, Neut # (Auto) 6.0, Lymph # (Auto) 0.6 L, [place] # (Auto) 0.4, Eos # (Auto) 0.0, Baso # ( Auto) 0.0 03/31/19 11:55: Sodium 139, Potassium 5.5 H D, Chloride 108 H, Carbon Dioxide 24, Anion Gap 12.5, BUN 35 H D, Creatinine 1.11, Estimated Creat Clear 113, Estimated GFR 69, Est GFR ( Amer) 83, Glucose 156 H D, Calcium 8.0 L, Total Bilirubin 0.7, AST 147 H, ALT 77, Alkaline Phosphatase 165 H, Total Protein 5.9 L, Albumin 1.9 L, Globulin 4.0 H, Albumin/Globulin Ratio 0.5 L Assessment and Plan (1) Esophageal varices Current visit: Yes Status: Acute Category: Medical Code(s): I85.00 - Esophageal varices without bleeding Currently, he does not appear to be actively bleeding. Serial H/H Transfuse as per PCP May require emergent transfer to tertiary care center secondary to possible need for large-volume transfusion (2) Cirrhosis Current visit: Yes Status: Acute Category: Medical Code(s): K74.60 - Unspecified cirrhosis of liver (3) Acute blood loss anemia Current visit: No Status: Acute Category: Medical Code(s): D62 - Acute posthemorrhagic anemia Likely recurrent bleeding secondary to varices. Recommend gastroenterology involvement for possible repeat EGD with banding (4) Hematemesis Current visit: No Status: Acute Qualifiers: Nausea presence: with nausea Qualified Code(s): K92.0 - Hematemesis Category: Medical Code(s): K92.0 - Hematemesis (5) Hepatic cancer Current visit: No Status: Acute Category: Medical Code(s): C22.9 - Malignant neoplasm of liver, not specified as primary or secondary Likely appropriate for Hospice evaluation/care
[2019-03-31 13:08] LABS: Anisocytosis 1+; Hypochromasia 2+; Lymphocytes % 6 % (10-50); Monocytes % 2 % (2-9); Neutrophils % 89 % (42-76); Total Cells Counted 100
[2019-04-01 00:23] LABS: Hemoglobin 7.7 g/dL (14.1-18.0)
[2019-04-01 00:24] LABS: Hematocrit 23.7 % (42.0-52.0)
--- NOTE | 2019-04-01 07:15 | Progress Note ---
Subjective Narrative: He states that he feels "a little better after the fourth bag of blood". Exam Vital signs and Labs for Last 24 Hours: Temp Pulse Resp BP Pulse Ox 98.4 F 78 18 109/67 L 97 04/01/19 06:34 04/01/19 06:34 04/01/19 06:34 04/01/19 06:34 04/01/19 06:34 Laboratory Results - last 24 hr 03/31/19 11:55: WBC 7.1, RBC 2.65 L, Hgb 7.0 L*, Hct 22.4 L*, MCV 84.8, MCH 26.0 L, MCHC 30.7 L, RDW 16.8, Plt Count 95 L, MPV 9.1, Neut % (Auto) 85.2 H, Lymph % (Auto) 9.1 L, [place] % (Auto) 5.1, Eos % (Auto) 0.2, Baso % (Auto) 0.5, Neut # (Auto) 6.0, Lymph # (Auto) 0.6 L, [place] # (Auto) 0.4, Eos # (Auto) 0.0, Baso # (Auto) 0.0, Total Counted 100, Neutrophils % (Manual) 89 H, Band Neutrophils % 2.0, Lymphocytes % (Manual) 6 L, Monocytes % (Manual) 2, Metamyelocytes % 1.0, Platelet Estimate Slight decrease, Hypochromasia 2+, Poikilocytosis 1+, Anisocytosis 1+, Microcytosis 1+, Acanthocytes (Spur) 1+ 03/31/19 11:55: Sodium 139, Potassium 5.5 H D, Chloride 108 H, Carbon Dioxide 24, Anion Gap 12.5, BUN 35 H D, Creatinine 1.11, Estimated Creat Clear 113, Estimated GFR 69, Est GFR ( Amer) 83, Glucose 156 H D, Calcium 8.0 L, Total Bilirubin 0.7, AST 147 H, ALT 77, Alkaline Phosphatase 165 H, Total Protein 5.9 L, Albumin 1.9 L, Globulin 4.0 H, Albumin/Globulin Ratio 0.5 L 03/31/19 13:30: Blood Type A Positive, Antibody Screen Negative, Crossmatch (G) See Detail 03/31/19 13:30: Crossmatch (G) See Detail 04/01/19 00:12: Hgb 7.7 L*, Hct 23.7 L* I & O for Last 24 hours: Intake & Output 03/29/19 03/30/19 03/31/19 04/01/19 11:59 11:59 11:59 11:59 Intake Total 2289 / 2289 Balance 2289 / 2289 Weight 234 lb 3 oz 255 lb 6 oz - Constitutional no acute distress - *Routine Respiratory Exam Absent: respiratory distress - *Routine Cardiovascular Exam Present: RRR Progress Note: A&P (1) Esophageal varices Status: Acute Current Visit: Yes (2) Cirrhosis Status: Acute Current Visit: Yes (3) Acute blood loss anemia Status: Acute Assessment and plan: Blood loss most likely secondary to esophageal varices. He had a limited response to the first 2 units of packed red blood cells and an additional 2 units have been transfused. He states he "feels a little better". Posttransfusion hemoglobin/hematocrit are pending. Gastroenterology consultation pending (likely esophagogastroduodenoscopy today) Current Visit: No (4) Hematemesis Status: Acute Current Visit: No (5) Hepatic cancer Status: Acute Current Visit: No
[2019-04-01 07:50] LABS: Hematocrit 28.7 % (42.0-52.0)
[2019-04-01 07:51] LABS: Hemoglobin 9.5 g/dL (14.1-18.0)
--- NOTE | 2019-04-01 09:11 | Procedure Note ---
[facility] Procedure Note Procedure Note:: Upper Endoscopy Procedure Report: Esophagogastroduodenoscopy with esophageal variceal band ligation Endoscopost: Waqas Abreu II, MD Referring Physician: Real Linda MD Date of Procedure: April 01, 2019 Equipment: Olympus GIF 180 standard upper endoscope Sedation: MAC sedation Indications: Mr. Galdamez is a 53-year-old gentleman with hepatitis C, cirrhosis and hepatocellular carcinoma. He has been followed by the [facility] but does have very advanced disease. The patient did have melena and GI bleeding and underwent EGD on November 01, 2018. At that time, he was found to have grade 2-3 esophageal varices that were banded x5. The patient redeveloped hematemesis yesterday with blood and clots. He also had melena. This is his second GI bleed. The patient had a initial hemoglobin and hematocrit of 7.0 and 22.4. He did receive 4 units of PRBCs and his hemoglobin/hematocrit today were 7.7 and 23.7. The patient reports no abdominal pain. He is fully oriented. Procedure: Prior to the procedure, a history and physical exam was performed, and patient's medications and allergies were reviewed. The risks, benefits and alternatives of the sedation and procedure were discussed with the patient. All questions were answered and informed consent was obtained. The patient was brought to the procedure room. Patient identification and proposed procedure were verified by the physician and the nurse. The patient was placed in a left lateral decubitus position and the scope was passed under direct vision. Throughout the procedure, the patient's blood pressure, pulse, and oxygen saturations were monitored continuously. The upper GI endoscopy was accomplished without difficulty. The patient tolerated the procedure well. Findings: The scope was passed directly into the upper esophagus and advanced to the third portion of the duodenum. The post bulbar duodenum and duodenal bulb were normal with normal mucosa and conniventes. The scope was withdrawn through a normal duodenal bulb and pylorus into the stomach. There was moderate portal gastropathy in the body and fundus of the stomach. There was no evidence of GAVE. Upon retroflexion there were no gastric varices and no hiatal hernia. The scope was then withdrawn into the esophagus. There were large grade 2-3 esophageal varices with stigmata and red maxime signs consistent with recent GI bleed. These were banded using 6 bands with excellent ligation effect. There was no evidence of reflux esophagitis or Albrecht's. Impression: 1. Grade 2-3 esophageal varices with stigmata (red maxime signs) status post band ligation x6 2. Moderate portal gastropathy Plan: The patient does have risk for repeat bleeding. I would recommend as standard treatment for patients with cirrhosis and upper GI bleeding be given prophylactic antibiotics (often preferably prior to endoscopy but effectiveness has also been demonstrated when given after endoscopy) with Rocephin/ceftriaxone for 7 days. This can be transitioned to Cipro. I would also recommend octreotide for 36 to 48 hours to reduce the portal hypertension and prevent further bleeding. This should result and stability. I would transfuse to hematocrit greater than 28 based upon volume of bleeding. I would keep the patient for at least 48 hours. I would monitor for encephalopathy and treat with lactulose and/or Xifaxan. I will plan to do repeat EGD to continue variceal banding to obliteration of varices every 2 weeks.
--- NOTE | 2019-04-01 09:39 | Progress Note ---
[facility] Anesthesia Checklist - Structural Data Admitted From: Inpatient Planned Operative Procedure/s: egd Consent for Planned Operative Procedure(s) Verified: Yes - Additional verifications Anesthesia Reactions: No - Airway Assessment C-Spine Mobility Assessed: Yes TMJ Mobility Assessed: Yes Dentition: Poor Dentition - Neurological Assessment Level of Consciousness: Awake, Alert, Appropriate - Anesthesia Plan Anesthesia Risk discussed: Yes Anesthesia Plan: Verified ASA Class: III Anesthesia Type: MAC [facility] History I have reviewed the patient's past medical history: Yes Medical History: Reports:: Cancer (LIVER), Chronic Obstructive Pulmonary Disease (COPD), Depression, Hyperlipidemia, Hypertension Denies:: Diabetes Mellitus Type 1, Diabetes Mellitus Type 2, Internal Pacemaker, Seizures *Have you ever received a pneumonia vaccine?: Yes *Have you received a flu vaccine this season?: Yes Other Medical History: Reports: Anemia, Liver Disease (Liver Mass, Liver CA, chemotherapy) Anesthesia experience/problems:: none Other Surgeries: Yes: Cholecystectomy, EGD, Other. No: Pacemaker Amputation: No Fractures: No - *Social History Educational Level: Attended Grade School Smoking Status: Former smoker Tobacco Type: cigarettes # Packs/Day (cigarettes): 1 Alcohol Intake: former Alcohol Intake Frequency:: other Substance Use Type: denies use *Occupational Status:: disabled Housing: assisted living facility Household Members: other *Travel in the last 8 weeks: None - Psychiatric History Pschychiatric History:: Reports:: Depression Family Hx:: Unable to obtain
--- NOTE | 2019-04-01 09:40 | Progress Note ---
[facility] Anesthesia Record Part II Discharge Time: 09:25 Destination: [facility] PACU nurse assessment reviewed?: Yes Patient Condition:: Good Anesthesia Complications:: None Swallowing reflex intact?: Yes Cyanosis?: No Blood Pressure: 126/68 Pulse Rate: 80 Temperature: 97.9 F Mental Status: Lethargic Pain level:: 0 Nausea and/or vomitting:: None Intake, IV Amount: 500
--- NOTE | 2019-04-01 11:52 | Progress Note ---
Internal Medicine - PN: Subj *Date: 04/01/19 *Time: 08:30 Interval history: pt seen in post op. awake and alert c/o of back pain Exam Vital signs and Labs for Last 24 Hours: Temp Pulse Resp BP Pulse Ox 97.9 F 79 16 113/73 98 04/01/19 09:40 04/01/19 09:45 04/01/19 09:45 04/01/19 09:45 04/01/19 09:45 Laboratory Results - last 24 hr 03/31/19 11:55: WBC 7.1, RBC 2.65 L, Hgb 7.0 L*, Hct 22.4 L*, MCV 84.8, MCH 26.0 L, MCHC 30.7 L, RDW 16.8, Plt Count 95 L, MPV 9.1, Neut % (Auto) 85.2 H, Lymph % (Auto) 9.1 L, [place] % (Auto) 5.1, Eos % (Auto) 0.2, Baso % (Auto) 0.5, Neut # (Auto) 6.0, Lymph # (Auto) 0.6 L, [place] # (Auto) 0.4, Eos # (Auto) 0.0, Baso # (Auto) 0.0, Total Counted 100, Neutrophils % (Manual) 89 H, Band Neutrophils % 2.0, Lymphocytes % (Manual) 6 L, Monocytes % (Manual) 2, Metamyelocytes % 1.0, Platelet Estimate Slight decrease, Hypochromasia 2+, Poikilocytosis 1+, Anisocytosis 1+, Microcytosis 1+, Acanthocytes (Spur) 1+ 03/31/19 11:55: Sodium 139, Potassium 5.5 H D, Chloride 108 H, Carbon Dioxide 24, Anion Gap 12.5, BUN 35 H D, Creatinine 1.11, Estimated Creat Clear 113, Estimated GFR 69, Est GFR ( Amer) 83, Glucose 156 H D, Calcium 8.0 L, Total Bilirubin 0.7, AST 147 H, ALT 77, Alkaline Phosphatase 165 H, Total Protein 5.9 L, Albumin 1.9 L, Globulin 4.0 H, Albumin/Globulin Ratio 0.5 L 03/31/19 13:30: Blood Type A Positive, Antibody Screen Negative, Crossmatch (AHG) See Detail 03/31/19 13:30: Crossmatch (AHG) See Detail 04/01/19 00:12: Hgb 7.7 L*, Hct 23.7 L* 04/01/19 07:30: Hgb 9.5 L D, Hct 28.7 L I & O for Last 24 hours: Intake & Output 03/29/19 03/30/19 03/31/19 04/01/19 11:59 11:59 11:59 11:59 Intake Total 2789 / 2789 Balance 2789 / 2789 Weight 234 lb 3 oz 255 lb 6 oz - Constitutional no acute distress - *Routine HEENT Exam Head: Present: normocephalic Eye: Present: PERRL ENT: Present: mucous membranes moist - *Routine Neck Exam Present: supple. Absent: lymphadenopathy - *Routine Respiratory Exam Present: CTA bilaterally - *Routine Cardiovascular Exam Present: RRR - *Routine Abdominal Exam Present: soft, normoactive bowel sounds. Absent: tenderness, distended, rebound, guarding - *Routine Extremities Exam Present: full ROM. Absent: cyanosis, clubbing, edema - *Routine Skin Exam Present: intact, warm. Absent: rash - *Routine Neurological Exam Present: alert, oriented X3 Assessment and Plan (1) Esophageal varices Current visit: Yes Status: Acute Category: Medical Code(s): I85.00 - Esophageal varices without bleeding (2) Cirrhosis Current visit: Yes Status: Acute Category: Medical Code(s): K74.60 - Unspecified cirrhosis of liver (3) Acute blood loss anemia Current visit: No Status: Acute Category: Medical Code(s): D62 - Acute posthemorrhagic anemia (4) Hematemesis Current visit: No Status: Acute Qualifiers: Nausea presence: with nausea Qualified Code(s): K92.0 - Hematemesis Category: Medical Code(s): K92.0 - Hematemesis (5) Hepatic cancer Current visit: No Status: Acute Category: Medical Code(s): C22.9 - Malignant neoplasm of liver, not specified as primary or secondary - Assessment and plan all Dx Assessment and Plan for all problems:: rounded with arlene all orders per arlene
--- NOTE | 2019-04-02 07:09 | Progress Note ---
Internal Medicine - PN: Subj *Date: 04/02/19 *Time: 07:06 Interval history: pt with recent esophageal banding - c/o of pain with eating - reviewed dr arthur note - pt again reports not taking chemo pill at ec - no bleeding Exam Vital signs and Labs for Last 24 Hours: Temp Pulse Resp BP Pulse Ox 99.1 F 96 H 17 121/76 94 L 04/02/19 04:00 04/02/19 04:00 04/02/19 04:00 04/02/19 04:00 04/02/19 04:00 Laboratory Results - last 24 hr 03/31/19 13:30: Crossmatch (AHG) See Detail 03/31/19 13:30: Crossmatch (AHG) See Detail 04/01/19 07:30: Hgb 9.5 L D, Hct 28.7 L I & O for Last 24 hours: Intake & Output 03/30/19 03/31/19 04/01/19 04/02/19 11:59 11:59 11:59 11:59 Intake Total 2789 / 2789 2085 Balance 2789 / 2789 2085 Weight 234 lb 3 oz 255 lb 6 oz 254 lb 1 oz - Constitutional no acute distress - *Routine HEENT Exam Head: Present: normocephalic Eye: Present: EOMI, PERRL ENT: Present: mucous membranes dry - *Routine Neck Exam Present: supple - *Routine Respiratory Exam Present: decreased breath sounds - *Routine Cardiovascular Exam Present: RRR, murmur - *Routine Abdominal Exam Present: soft - *Routine Extremities Exam Absent: calf tenderness - *Routine Skin Exam Present: intact - *Routine Neurological Exam Present: alert, CN II-XII intact - Routine Psychiatric Exam Present: normal affect Assessment and Plan (1) Cirrhosis Current visit: Yes Status: Acute Category: Medical Code(s): K74.60 - Unspecified cirrhosis of liver (2) Esophageal varices Current visit: Yes Status: Acute Category: Medical Code(s): I85.00 - Esophageal varices without bleeding (3) Acute blood loss anemia Current visit: No Status: Acute Category: Medical Code(s): D62 - Acute posthemorrhagic anemia
[2019-04-02 07:30] LABS: Basophils % 0.3 % (0.1-2.0); Eosinophils % 0.6 % (0.1-12.0); Hematocrit 27.6 % (42.0-52.0); Hemoglobin 8.8 g/dL (14.1-18.0); Lymphocytes # 0.7 K/mm3 (0.7-4.5); Lymphocytes % 11.3 % (10-50); Mean Corpuscular HGB Conc 31.8 g/dL (31.8-35.4); Mean Corpuscular Volume 84.9 fl (80-94); Mean Platelet Volume 8.7 fl (7.4-10.4); Monocytes # 0.5 K/mm3 (0.1-1.0); Monocytes % 8.9 % (1.7-9.3); Neutrophils # 4.6 K/mm3 (1.8-7.8); Platelet Count 82 K/mm3 (142-424); Red Blood Count 3.25 M/mm3 (4.60-6.20); Red Cell Distribution Width 18.1 % (11.5-17.5); White Blood Count 5.8 K/mm3 (4.8-10.8)
[2019-04-02 07:39] LABS: Anion Gap 11.8 mEq/L (5-15); Calcium 7.6 mg/dL (8.5-10.1)
--- NOTE | 2019-04-03 00:11 | Discharge Summary ---
General - General Admission date:: 03/31/19 Discharge date: 04/03/19 HPI HPI: 53-year-old male directly admitted from personal [facility] living with a GI bleed. Patient states he was at a personal senior living and he was vomiting up blood and was unable to keep anything down. Patient admitted for surgery consult and gastrology consult. Patient has a history of esophageal varices. Hospital Course Hospital Course: Mr. Galdamez is a 53-year-old gentleman with a history of hep C, cirrhosis, but a cellular carcinoma he has very advanced disease and is no longer pursuing treatment with chemotherapy for his hepatocellular carcinoma. During admission Gastroenterology and Surgery were consulted to assist in patient's care. Gastroenterology performed EGD and banding due to melena and GI bleeding. At that time, he was found to have grade 2-3 esophageal varices that were banded x5. The patient redeveloped hematemesis on the second day of admission with blood and clots. This was accompanied by melenic stools. He required initially 4 units of packed red blood cells due to hemoglobin of 7 on admission. He subsequently had a hemoglobin of 7 after the repeat bleeding issue. He was initiated on prophylactic antibiotics, and monitored for further bleeding, encephalopathy, and started on octreotide for portal hypertension. Patient tolerated advancement of his diet with no further episodes. He was transitioned to oral ciprofloxacin to complete 7 days of prophylactic antibiotics to decrease risk for infection and SBP. His hematocrit stayed stable. Patient medically stable for discharge home with plan to do repeat EGD to continue variceal banding to obliteration of varices every 2 weeks. Denies abdominal pain, chest pain, shortness of breath, hematemesis, melenic stools, nausea or vomiting Objective Vital signs: Temp Pulse Resp BP Pulse Ox 99.5 F 86 18 139/74 90 L 04/02/19 20:00 04/02/19 20:00 04/02/19 20:00 04/02/19 20:00 04/02/19 20:00 Narrative: - Constitutional no acute distress, obese - *Routine HEENT Exam Head: Present: normocephalic Eye: Present: EOMI, PERRL ENT: Present: mucous membranes dry - *Routine Neck Exam Present: supple - *Routine Respiratory Exam Present: decreased breath sounds - *Routine Cardiovascular Exam Present: RRR, murmur - *Routine Abdominal Exam Present: soft - *Routine Extremities Exam Absent: calf tenderness - *Routine Skin Exam Present: intact - *Routine Neurological Exam Present: alert, CN II-XII intact, no asterixis - Routine Psychiatric Exam Present: Flat affect Results Labs on day of discharge: Labs from last 24 hours 04/02/19 04/02/19 03/31/19 06:50 06:50 13:30 WBC 5.8 RBC 3.25 L Hgb 8.8 L Hct 27.6 L MCV 84.9 MCH 27.0 MCHC 31.8 RDW 18.1 H Plt Count 82 L MPV 8.7 Neut % (Auto) 79.0 Lymph % (Auto) 11.3 [place] % (Auto) 8.9 Eos % (Auto) 0.6 Baso % (Auto) 0.3 Neut # (Auto) 4.6 Lymph # (Auto) 0.7 [place] # (Auto) 0.5 Eos # (Auto) 0.0 Baso # (Auto) 0.0 Sodium 134 L Potassium 3.8 D Chloride 104 Carbon Dioxide 22 Anion Gap 11.8 BUN 19 H D Creatinine 0.91 Estimated Creat Clear 150 Estimated GFR 86 Est GFR ( Amer) 105 D Glucose 141 H Calcium 7.6 L Crossmatch (AHG) See Detail DS: Diagnosis - Discharge Diagnosis (1) Cirrhosis Status: Chronic (2) Esophageal varices Status: Chronic (3) Acute blood loss anemia Status: Acute Discharge Plan - Patient Discharge Instructions ACTIVITY: Ambulate as tolerated, No heavy lifting DIET: low salt diet Patient Instructions: DI for Esophageal Varices, Gastrointestinal Bleeding - Follow up Plan Follow up with: Waqas Abreu MD [Staff Physician] - 04/18/19 11:00 am Real Linda MD [Primary Care Provider] - Disposition: Home, Self-Retirement Medications: Home Medications Medication Instructions Recorded Confirmed Type Trazodone HCl 50 mg PO HS 05/16/18 03/31/19 History Prochlorperazine Maleate 10 mg PO Q6HP PRN 10/31/18 03/31/19 History [Compazine] Sucralfate [Sucralfate 1gm 1 mg PO ACHS 10/31/18 03/31/19 History Tab] bisoproloL fumarate [Zebeta 5mg 5 mg PO DAILY 10/31/18 03/31/19 History tablet] Albuterol Sulfate [Albuterol HFA 2 puff IH BID 11/01/18 03/31/19 History Inhaler] lisinopriL [Lisinopril 5mg 5 mg PO DAILY 11/01/18 03/31/19 History Tablet] Ondansetron HCl [Ondansetron 8mg 8 mg PO Q8HP PRN 12/06/18 03/31/19 History Tablet] Doxepin HCl 150 mg PO DAILY 03/31/19 03/31/19 History Diphenoxylate HCl/Atropine 1 tab PO QID 04/01/19 04/01/19 History [Lomotil 2.5mg tablet] Famotidine 40 mg PO DAILY 04/01/19 04/01/19 History Lenvatinib Mesylate [Lenvima] 8 mg PO DAILY 04/01/19 04/01/19 History Loperamide HCl [Loperamide] 2 mg PO Q3HP PRN 04/01/19 04/01/19 History Ciprofloxacin HCl [Cipro 500mg 500 mg PO BID 4 Days #8 tab 04/03/19 Rx Tab] Prescriptions/Medication Reconciliation: New Ciprofloxacin HCl [Cipro 500mg Tab] 500 mg PO BID 4 Days #8 tab Continued Trazodone HCl 50 mg PO HS Sucralfate [Sucralfate 1gm Tab] 1 mg PO ACHS Prochlorperazine Maleate [Compazine] 10 mg PO Q6HP PRN PRN Reason: Vomiting lisinopriL [Lisinopril 5mg Tablet] 5 mg PO DAILY Loperamide HCl [Loperamide] 2 mg PO Q3HP PRN PRN Reason: Diarrhea bisoproloL fumarate [Zebeta 5mg tablet] 5 mg PO DAILY Albuterol Sulfate [Albuterol HFA Inhaler] 2 puff IH BID Ondansetron HCl [Ondansetron 8mg Tablet] 8 mg PO Q8HP PRN PRN Reason: Nausea And Vomiting Doxepin HCl 150 mg PO DAILY Diphenoxylate HCl/Atropine [Lomotil 2.5mg tablet] 1 tab PO QID Famotidine 40 mg PO DAILY Lenvatinib Mesylate [Lenvima] 8 mg PO DAILY - Problem Reconciliation Problems Reviewed?: Yes
[2019-04-03 06:47] LABS: Basophils % 0.3 % (0.1-2.0); Eosinophils % 0.6 % (0.1-12.0); Hematocrit 26.9 % (42.0-52.0); Hemoglobin 8.7 g/dL (14.1-18.0); Lymphocytes # 0.7 K/mm3 (0.7-4.5); Lymphocytes % 11.3 % (10-50); Mean Corpuscular HGB Conc 32.3 g/dL (31.8-35.4); Mean Corpuscular Volume 84.3 fl (80-94); Mean Platelet Volume 8.8 fl (7.4-10.4); Monocytes # 0.5 K/mm3 (0.1-1.0); Monocytes % 8.7 % (1.7-9.3); Neutrophils # 4.5 K/mm3 (1.8-7.8); Neutrophils % 79.1 % (37.0-80.0); Platelet Count 85 K/mm3 (142-424); Red Blood Count 3.19 M/mm3 (4.60-6.20); Red Cell Distribution Width 18.4 % (11.5-17.5); White Blood Count 5.7 K/mm3 (4.8-10.8)
[2019-04-03 06:59] LABS: Anion Gap 10.6 mEq/L (5-15); Calcium 7.7 mg/dL (8.5-10.1)
== END 2019-04-03 15:04 | disposition home or self-care (01) | DRG 435 ==
LOC: 2ND → OBSVTOIN 10:54
PROVIDERS: ADMIT Emergency Medicine; ATTEND Emergency Medicine
CPT/HCPCS: 36415; 71020; 71046; 80048; 80053; 85007; 85014; 85018; 85025; 85610; 85651; 86850; 96365; 96375; 99283; J2354; P9016

== ENCOUNTER → 2019-06-06 19:40 | Outpatient (CLI) | payer BC, SELFPAY | PROVIDERS: PCP Internal Medicine Adolescent Medicine; Visit Provider Internal Medicine Adolescent Medicine | DX: J11.1 Influenza due to unidentified influenza virus with other respiratory manifestations (principal) | CPT/HCPCS: 87275; 87276 ==

== ENCOUNTER → 2019-07-26 09:41 | Outpatient (CLI) | payer OTHER, MEDICAID, SELFPAY ==
--- NOTE | 2019-07-26 09:47 | US_ITS ---
PROCEDURE: US PARACENTESIS CLINICAL INDICATION: [facility] TECHNIQUE: Ultrasound exam performed before the paracentesis shows a scattered mild amount of ascites. Of large amount ascites does not appear to be present. The ascites however spread out over the abdomen. There is also hepatomegaly. No single large area of ascites was apparent. Patient's abdomen was distended however much of this was related to peritoneal fat and bowel as well as hepatosplenomegaly. Informed consent was obtain prior to procedure. After appropriate Time out, under aseptic conditions and local anesthesia with 1% buffered lidocaine using sonographic guidance a 6 [place] [id number] catheter was inserted in the right lateral abdominal region. Was inserted into the largest pocket of fluid localized in the right lower quadrant. Approximately 3500 mL of Serosanguineous fluid was drained. The patient tolerated the procedure well and left the radiology suite in stable condition. FINDINGS: Mild amount diffuse ascites with hepatomegaly. There is coarse echogenicity of the liver consistent with cirrhosis IMPRESSION: Successful sonographic guided paracentesis without complication. Dictated by: Prosper Hunter MD 07/26/2019 18:26 Electronically signed by Prosper Hunter MD in [place] 07/26/2019 18:26
== END ==
PROVIDERS: PCP Internal Medicine Adolescent Medicine; Visit Provider Internal Medicine Adolescent Medicine
DX: R18.8 Other ascites (principal)
CPT/HCPCS: 49083

== ENCOUNTER 2019-08-17 08:47 | Outpatient (CLI) | payer OTHER, MEDICAID, SELFPAY ==
--- NOTE | 2019-08-17 08:53 | US_ITS ---
PROCEDURE: US PARACENTESIS CLINICAL INDICATION: ASCITES Distended abdomen, difficulty breathing COMPARISON: [id number] CT abdomen pelvis w con from 10/31/2018 TECHNIQUE: Informed consent was obtain prior to procedure. After appropriate Time out, under aseptic conditions and local anesthesia with 1% buffered lidocaine using sonographic guidance a 6 [place] Iafr-X-[id number] catheter was inserted into the largest pocket of fluid localized in the right lower quadrant. Approximately 9600 mL of Serosanguineous fluid was drained. The patient tolerated the procedure well and left the radiology suite in stable condition. FINDINGS: Diffuse ascites IMPRESSION: Successful sonographic guided paracentesis without complication. Dictated by: Prosper Hunter MD 08/18/2019 09:55 Electronically signed by Prosper Hunter MD in [place] 08/18/2019 09:55
[2019-08-17 10:59] VITALS: BMI 32.0
[2019-08-17 11:23] LABS: Alanine Aminotransferase 87 U/L (12-78); Albumin Level 3.5 g/dl (3.5-5.0); Albumin/Globulin Ratio 0.7 (1.1-1.8); Alkaline Phosphatase 299 U/L (38-126); Anion Gap 11.4 mEq/L (5-15); Aspartate Amino Transferase 671 U/L (17-59); Blood Urea Nitrogen 27 mg/dl (9-20); Calcium 11.9 mg/dl (8.4-10.2); Carbon Dioxide 23 mmol/L (22.0-30.0); Chloride 101 mmol/L (98-107); Creatinine Clearance Estimated 71 mL/min (50-200); Estimated Glomerular Filt Rate 39 ml/min (>60); GFR (African American) 47 ML/MIN (>60); Globulin 4.7 g/dL (1.3-3.2); Glucose 94 mg/dl (74-100); Potassium 5.4 mmoL/L (3.5-5.1); Sodium 130 mmol/L (136-145); Total Protein,Serum 8.2 g/dl (6.3-8.2)
[2019-08-17 12:03] VITALS: BP 103/52; PULSE 74; RESP 18; O2SAT 94
[2019-08-17 15:13] VITALS: BP 100/52; PULSE 74; RESP 18; O2SAT 94
== END 2019-08-17 15:13 | disposition home or self-care (01) ==
LOC: RAD 08:47 → INF 10:45
PROVIDERS: PCP Internal Medicine Adolescent Medicine; Visit Provider Internal Medicine
DX: C22.0 Liver cell carcinoma (principal); R18.0 Malignant ascites
CPT/HCPCS: 49083; 80053; 96365; 96366; P9047